=== PATIENT | male | born 1960 | race Caucasian/White ===

== ENCOUNTER → 2020-04-17 15:10 | Outpatient (BNVA) | payer MEDICARE, OTHER, SELFPAY | PROVIDERS: Referring Provider Nurse Practitioner Family; Visit Provider Podiatrist Foot & Ankle Surgery | DX: M79.671 Pain in right foot (principal); M79.672 Pain in left foot; M77.32 Calcaneal spur, left foot; M77.31 Calcaneal spur, right foot | CPT/HCPCS: 73630 ==

== ENCOUNTER 2024-12-01 08:55 | Outpatient (CLI) | payer BC, SELFPAY ==
--- NOTE | 2024-12-01 09:06 | XR_ITS ---
WS: [id number] XR chest 2V* [id number] REASON FOR EXAM: R05.9 - Cough, unspecified FINDINGS: Moderate tortuosity of the thoracic aorta. Normal heart size. Calcified granulomatous disease in both hemithoraces. No acute pulmonary parenchymal or pleural abnormality. Moderate degenerative spondylosis in the thoracic spine. XR/XR chest 2V* [id number] IMPRESSION: No acute chest abnormality.
== END 2024-12-01 08:56 | disposition home or self-care (01) ==
PROVIDERS: PCP Nurse Practitioner Family; Visit Provider Nurse Practitioner Family
DX: R05.9 Cough, unspecified (principal); R53.83 Other fatigue; I10 Essential (primary) hypertension; Q25.46 Tortuous aortic arch; D71 Functional disorders of polymorphonuclear neutrophils; M47.894 Other spondylosis, thoracic region
CPT/HCPCS: 71046; 80053; 85025

== ENCOUNTER → 2024-12-05 11:19 | Outpatient (BNVA) | payer BC, SELFPAY | PROVIDERS: PCP Nurse Practitioner Family; Visit Provider Nurse Practitioner Family | DX: R73.09 Other abnormal glucose (principal); J20.8 Acute bronchitis due to other specified organisms; B96.89 Other specified bacterial agents as the cause of diseases classified elsewhere | CPT/HCPCS: 83036 ==

== ENCOUNTER 2025-08-10 00:33 | Inpatient (IN) | payer BC, SELFPAY ==
--- OUTSIDE RECORDS SUMMARY | 2025-08-09 23:08 | XMS_ITS | Encounter Summary ---
Author Organization [facility] Address [address] [place] [address] Care Team Providers Care Soda Drier Feeder Name Role Phone Non-Staff, Physician Primary Care Provider Unava ilable Reason for Visit * Reason Comments Shortness of Breath Patient states he is having shortness of breath 3 days ago. Patient states he has been smoking a pipe without a filter and I feel like I have it on my lungs . Chest Pain Chest pain is been h aving it when he can't breath. Encounter Details Date Type Department Care Team (Late st Contact Info) Description 08/09/2025 11:08 PM CDT - 08/09/2025 11:55 PM CDT Emergency [facility] Emergency Medicine [address] [place] [id number] Royal Zamora MD [address] [facility] [address] [place] [id number] ST elevation myocardial infarction (STEMI), unspecified artery (CMS/HCC) (Primary Dx) Discharge Disposition: Acute Care Hospital Social History Tobacco Use Types Packs/Day Years Used Date Smoking Tobacco: Some Days Pipe Smokeless Tobacco: Current Last attempted to quit: 08/10/2016 Tobacco Cessation:Ready to Q uit: Not Asked; Counseling Given: Not Answered Comments:Quit smoking: one can per 3 days x 40 years Alcohol Use Standard Drinks/Week Comments No 0 (1 standard drink = 0.6 oz pur e alcohol) Feeling Safe Answer Date Recorded Are you in a relationship wi th someone who hurts you emotionally and/or physically? No 08/09/2025 Food Insecurity Answer Date Recorded Patient needs follow up regardin 06/12/2025 Transportation Needs Answer Date Record ed Patient needs follow up regardin 06/12/2025 Utility Needs Answer Date Recorded Patient needs follow up regardin 06/12/2025 Sex and Gender Information Value Date Recorded Sex Assigned at Not on file Legal Sex Male 3:51 PM [employer]PO[employer]AR [employer] Gender Identity Not on file Sexual Orientation Not on file documented as of this encounter Last Filed Vital Signs Vital Sign Reading Time Taken Comments Blood Pressure 112/76 08/09/2025 11:50 PM CDT Pulse 84 08/09/2025 11:50 PM CDT Temperature 37.1 C (98.7 F) 08/09/2025 11:18 PM CDT Respiratory Rate 14 08/09/2025 11:5 0 PM CDT Oxygen Saturation 93% 08/09/2025 11: 50 PM CDT Inhaled Oxygen Concentration - - Weight 110.9 kg (244 lb 9.6 oz) 025 11:18 PM CDT Height 190.5 cm (6' 3 ) 08/09/2025 11:1 8 PM CDT Body Mass Index 30.57 08/09/2025 11:18 PM CDT documented in this encounter Medications at Time of Discharge predniSONE (DELTASONE) 5 mg tablet Take 1 Tablet by mouth daily. 02/23/2022 carvediloL (COREG) 6.25 mg tablet Take 6.25 mg by mouth 2 times daily with meals. tacrolimus (PROGRAF) 1 mg capsule Take 1 mg by mouth 2 times daily. acetaminophen (TYLENOL) 500 mg tablet Take 1,000 mg by mouth. 02/19/2022 amitriptyline (ELAVIL) 10 mg tablet TAKE 4 TABLETS BY MOUTH NIGHTLY 04/23/2022 aspirin (ECOTRIN EC) 81 mg Tablet, Delayed Release (E.C.) Take 81 mg by mouth daily. 05/15/2020 Cholecalciferol, Vitamin D3, 50 mcg (2,000 unit) Capsule Take 2,000 Units by mouth daily. 05/15/2020 amLODIPine (NORVASC) 10 mg tablet Take 10 mg by mouth daily. 04/02/2015 oxyBUTYnin (DITROPAN) 5 mg tablet Take 5 mg by mouth. 02/19/2022 phenazopyridine 100 mg tablet Take 100 mg by mouth. 02/19/2022 oxyCODONE (ROXICODONE) 5 mg tabletIndications: Mass of mandible Take 1 Tablet (5 mg) by mouth every 4 hours as needed for Pain. Max Daily Amount: 30 mg 20 Tablet 06/21/2025 oxyCODONE (ROXICODONE) 5 mg tabletIndications: Mass of mandible,Tobacco use Take 1 Tablet (5 mg) by mouth every 4 hours as needed for Pain. Max Daily Amount: 30 mg 20 Tablet 06/15/2025 penicillin V potassium (VEETID) 500 mg tablet TAKE 1 TABLET BY MOUTH 4 TIMES DAILY UNTIL GONE 05/16/2025 gabapentin (NEURONTIN) 600 mg tablet Take 1 Tablet by mouth 3 times daily. 02/18/2023 hydrALAZINE (APRESOLINE) 50 mg tablet Take 1 Tablet by mouth 3 times daily. 02/18/2023 mycophenolate sodium (MYFORTIC) 360 mg Tablet, Delayed Release (E.C.) Take 1 Tablet by mouth daily. 02/18/2023 diphenhydrAMINE (BENADRYL) 25 mg tablet Take 25 mg by mouth every 6 hours as needed for Allergies. 11/20/2018 sucroferric oxyhydroxide 500 mg Tablet, Chewable Take 500 mg by mouth 3 times daily. 11/20/2018 torsemide (DEMADEX) 100 mg tablet Take 100 mg by mouth 2 times daily. 11/20/2018 atenoloL (TENORMIN) 50 mg tablet Take 50 mg by mouth daily. 11/20/2018 pramipexole (MIRAPEX) 1 mg TabletIndications: Restless legs,Pain in both lower extremities TAKE 1 TABLET BY MOUTH THREE TIMES DAILY 90 Tablet 0 10/11/2018 hydrOXYzine HCL (ATARAX) 25 mg tabletIndications: Impetigo TAKE 1 TABLET BY MOUTH THREE TIMES DAILY NEEDED FOR ITCHING 30 Tablet 0 05/02/2018 mupirocin (BACTROBAN) 2 % OintmentIndication s:Bilateral cellulitis of lower leg Apply to affected area 2 times daily. 60 Gram 2 12/22/2017 clobetasoL (TEMOVATE) 0.05 % OintmentIndication s:Rash and nonspecific skin eruption Apply to affected area 2 times daily. 45 Gram 2 04/15/2016 losartan (COZAAR) 100 mg tablet Take 100 mg by mouth 2 times daily . 04/02/2015 documented as of this encounter Progress Notes * Dillan Jenkins RCP - 08/09/2025 11:17 PM CDT EKG completed. Results given to Dr. ZAMORA and scanned into [employer]. documented in this encounter ED Notes * Salima Blackburn RN - 08/09/2025 11:50 PM CDT Report given to [facility]. Patient transferred to EMS stretcher without any difficulty. Medicationscontinued with EMS. Ivs patent. Family advised where to go at [facility]. * Salima Blackburn RN - 08/09/2025 11:43 PM CDT Patient family at bedside. * Salima Blackburn RN - 08/09/2025 11:25 PM CDT Johnny Keith is a 64 y.o. male who arrives to the Emergency Department by private car. Chief Complaint Patient presents with Shortness of Breath Patient states he is having shortness of breath 3 days ago. Patient states he has been smoking a pipe without a filter and I feel like I have it on my lungs . Chest Pain Chest pain is been having it when he can't breath. Pain is 0/10. VSS, aaox4, HARRISON, behavior appropriate to circumstance, no acute distress at this time. Airway patent, self-maintained with even, non-labored respirations. Perfusion within normal limitsfor age. Skin color normal for ethnicity, warm, dry and intact. Instructed patient to remove clothing per policy, ensured patient privacy, gown provided to patient. ID band present. Patient in bed in low position with wheels locked. Patient informed of plan of care. Patient verbalized understanding and in agreement with plan of care, all questions answered. Comfort measures offered. spouse at bedside at this time. Monitors on and audible. Patient placed on continuous rn cardiac rehab, pulse ox and blood pressure monitoring. Call light at bedside. Patient encouraged to call with needs. Will continue to monitor. Weapons assessment performed. Education provided regarding facility weapon storage and securement policy. Johnny Keith denied possession of any weapons or firearms at this time documented in this encounter Miscellaneous Notes * Treatment Plan - Libra Renteria, PHARMACIST - 08/10/2025 12:14 AM CDT [facility] ([facility] Adult Heparin PTT Monitoring Protocol [facility] ORDERS ARE ENTERED ???PER PROTOCOL?? Nursing Orders: Heparin must be hung as primary IV on dedicated IV site, unless discussed with physician and exception is authorized Obtain an actual weight, not stated weight, for pharmacy verification Do not give IM injections unless credentialed prescriber is alerted and chooses to proceed. Exception: Patient may receive vaccinations without contacting provider. RN to hold pressure to site post administration for 2 minutes Call credentialed prescriber for any evidence of hematoma, decrease in hemoglobin of 2 gram/dL or more, or with any acute change in mental status When programming the smart pump, refer to weight in eMAR order (this may not correlate with patient's current weight) Verify weight in eMAR order matches weight in smartpump Enter actual volume infused into flowsheet directly from smart pump upon clearing the pump volume Laboratory Orders: Baseline: PTT and CBC without differential if not obtained in the last 72 hours before starting IV Heparin Infusion monitoring: Timed PTT every 6 hours after the initiation of infusion, change in rate or bolus until 2 consecutive PTT are in therapeutic range PTT monitoring should be used instead of Anti-xa monitoring for the following: Facility only has PTT lab monitoring capabilities Patients who have received a Xa inhibitor Direct Oral Anticoagulant (DOAC) medication (rivaroxaban,apixaban, edoxaban), therapeutic Enoxaparin, or Fondaparinux within the last 48 hours Daily once stable: PTT daily while on heparin once stable Minimum every 3 days: CBC without differential drawn at minimum of every 3 days while on heparin Medication Orders: Discontinue ALL other orders for subcutaneous, oral or IV anticoagulants, for example but not limited to: enoxaparin (LOVENOX), or fondaparinux (ARIXTRA) or oral anticoagulants dabigatran (PRADAXA), apixaban (ELIQUIS), edoxaban (SAVAYSA) or rivaroxaban (XARELTO). This protocol is not recommended for use with continuous alteplase infusions. Contact provider for additional orders. Pharmacist to confirm indication to ensure correct protocol table is followed, if unclear from the physician order or via chart review Pharmacist to verify heparin rate changes based on lab results in the protocol tables below. Pharmacist may update the order and MAR to match the current infusion rate. Dosing Weight: Obtain using a scale, NOT stated weight order-specific heparin dosing weight to be calculated by pharmacist. If weight <= 100 kg, ACTUAL body weight will be used to perform dose calculations If weight exceeds 100 kg, an ADJUSTED body weight will be used to perform dose calculations Initial dosing weight to be used for heparin infusion for the duration of therapy. Caution should be used by the RN to observe that this is the weight programmed in the smart pump. DVT/PE Heparin Infusion (usual indication for VTE: PE/DVT) Per provider order - bolus or no bolus Adjusted body weight used for pts >100 kg Initial Bolus Dose 80 units/kg (MAX 10,000 units) Initial Infusion 18 units/kg/hour PTT Bolus (if boluses are authorized by physician per infusion order) Hold Infusion IV infusion Change Next Level Less than 52.5 60 units/kg 0 min Increase heparin dose by 3 units/kg/hr 6 hours 52.5-62.7 30 units/kg 0 min Increase heparin dose by 2 units/kg/hr 6 hours 62.8-103.7 NO CHANGE Every 6 hours x 2 then every AM 103.8.113.9 none 0 min Decrease heparin dose by 1 units/kg/hr 6 hours 114.0-124.1 none 30 min Decrease heparin dose by 2 units/kg/hr 6 hours Greater than 124.1 none 60 min Decrease heparin dose by 3 units/kg/hr 6 hours Cardiac Heparin Infusion (usual indication: Atrial fibrillation, mechanical valves, ACS, high bleedrisk) Per provider order - bolus or no bolus Adjusted body weight used for pts >100 kg Initial Bolus Dose Atrial fibrillation, mechanical valves, high bleed risk: 60 units/kg (MAX 7500 units) ACS: 60 units/kg (MAX 4000 units) Initial Infusion Atrial fibrillation, mechanical valves, high bleed risk: 15 units/kg/hour ACS: 12 units/kg/hour (MAX 1000 units/hour) PTT Bolus (if boluses are authorized by physician per infusion order) Hold Infusion IV infusion Change Next Level Less than 52.5 30 units/kg 0 min Increase heparin dose by 2 units/kg/hr 6 hours 52.5-62.7 15 units/kg 0 min Increase heparin dose by 1 units/kg/hr 6 hours 62.8-93.4 NO CHANGE Every 6 hours x 2 then every AM 93.5-103.7 none 0 min Decrease heparin dose by 1 units/kg/hr 6 hours 103.8-124.1 none 30 min Decrease heparin dose by 2 units/kg/hr 6 hours Greater than 124.1 none 60 min Decrease heparin dose by 3 units/kg/hr 6 hours documented in this encounter Plan of Treatment Scheduled Orders Name Type Priority Associated Diagnoses Orde r Schedule TROPONIN 6 HR, 5TH GEN Lab Timed Study O NE TIME for 1 Occurrences starting 08/10/2025 until 08/10/2025 TROPONIN 2 HR, 5TH GEN Lab Timed Study O NE TIME for 1 Occurrences starting 08/10/2025 until 08/10/2025 CBC WITHOUT DIFFERENTIAL Lab Routine EVERY SEVENTY-TWO HOURS until discontinued starting 08/09/2025 PTT Lab Routine ONE TIME COLLE CT NOW for 1 Occurrences starting 08/09/2025 until 08/09/2025 documented as of this encounter Procedures Procedure Name Priority Date/Time Associated Diagnosis Comments XR CHEST PA OR AP 1 VW Stat 11:26 PM CDT TROPONIN BASELINE, 5TH GEN Stat 08/09/2025 11:13 PM CDT CBC WITH DIFFERENTIAL Stat 08/09/2025 11:13 PM CDT BRAIN NATRIURETIC PEPTIDE, BNP OR PROBNP Stat 08/09/2025 11:13 PM CDT COMPREHENSIVE METABOLIC PANEL Stat 08/09/2025 11:13 PM CDT documented in this encounter Results * XR CHEST PA OR AP 1 VW (08/09/2025 11:26 PM CDT) Anatomical Region Laterality Modality Chest Computed Radiogr aphy 08/09/2025 11:2 6 PM CDT Impressions 08/10/2025 12:26 AM CDT IMPRESSION: No evidence of acute cardiopulmonary disease. Narrative 08/10/2025 12:26 AM CDT EXAM: XR CHEST PA OR AP 1 VW DATE/TIME OF EXAM: 08/09/2025 11:26 PM REASON FOR EXAM: Shortness of Breath SOB DIAGNOSIS: See Reason for Exam COMPARISON: Chest x-ray 06/11/2025 FINDINGS: - Lines/tubes: None. - Cardiomediastinal: Contours are within normal limits. - Lungs/pleura: Sonograms of the multiple tiny calcified granuloma. No focal consolidation. Hemidiaphragms are well visualized; no appreciable pleural effusion or pneumothorax. - Bones and soft tissues: No acute abnormalities. - Additional comments: None. Procedure Note Radha Welsh MD - 08/10/2025 EXAM: XR CHEST PA OR AP 1 VW DATE/TIME OF EXAM: 08/09/2025 11:26 PM REASON FOR EXAM: Shortness of Breath SOB DIAGNOSIS: See Reason for Exam COMPARISON: Chest x-ray 06/11/2025 FINDINGS: - Lines/tubes: None. - Cardiomediastinal: Contours are within normal limits. - Lungs/pleura: Sonograms of the multiple tiny calcified granuloma. No focal consolidation. Hemidiaphragms are well visualized; no appreciable pleural effusion or pneumothorax. - Bones and soft tissues: No acute abnormalities. - Additional comments: None. IMPRESSION: No evidence of acute cardiopulmonary disease. Royal Zamora MD DIAGNOSTIC IMAGING OR DERABLES Final Result * (ABNORMAL) TROPONIN BASELINE, 5TH GEN (08/09/2025 11:13 PM CDT) TROPONIN T, BASELINE 5TH GEN 38(H) <=15 ng/L 08/09/2025 11:50 PM CDT [facility] Blood BLOOD SPECIMEN / Unknown Venipuncture / Unknown 08/09/2025 11:13 PM CDT 08/09/2025 11:28 PM CDT Narrative [facility] - 08/09/2025 11:50 PM CDT Troponin elevated. Royal Zamora MD CHEMISTRY ORDERABLES Final Result Performing Organization Address City/[facility]/ZIP Co de Phone Number [facility] CLIA # [id number] [address] [place] [phone] * (ABNORMAL) BRAIN NATRIURETIC PEPTIDE, BNP OR PROBNP (08/09/2025 11:13 PM CDT) PROBNP, N TERMINAL 580(H) 0 - 125 pg/mL 08/09/2025 11:50 PM CDT [facility] Comment: INTERPRETIVE COMMENT based on diagnosis: Diagnostic NT pro-BNP cutoffs for Heart Failure in the absence of renal failure is suggested for the following ranges <75 years: <125 pg/mL >=75 years: <450 pg/mL Exclusionary rule out cut-point for Acute Decompensated Heart Failure(ADHF) All ages: <300 pg/mL Diagnostic NT pro-BNP cutoffs for Acute Decompensated Heart Failure(ADHF) in the absence of renal failure is suggested for the following ages <50 years: > 450 pg/mL 50-75 years: > 900 pg/mL >75 years: >1800 pg/mL Blood BLOOD SPECIMEN / Unknown Venipuncture / Unknown 08/09/2025 11:13 PM CDT 08/09/2025 11:28 PM CDT Royal Zamora MD CHEMISTRY ORDERABLES Final Result Performing Organization Address City/[facility]/ZIP Co de Phone Number [facility] CLIA # [id number] [address] [place] [phone] * (ABNORMAL) COMPREHENSIVE METABOLIC PANEL (08/09/2025 11:13 PM CDT) SODIUM 134(L) 136 - 145 mmol/L 08/09/2025 11:52 PM CDT [facility] POTASSIUM 3.4(L) 3.5 - 5.1 mmol/L 08/09/2025 11:52 PM [facility] CHLORIDE 98 98 - 107 mmol/L 08/09/2025 11:52 PM [facility] CO2 19(L) 22 - 29 mmol/L 08/09/2025 11:52 PM [facility] CALCIUM 7.1(L) 8.8 - 10.2 mg/dL 08/09/2025 11:52 PM [facility] BUN 17 8 - 23 mg/dL 08/09/2025 11:52 PM [facility] CREATININE 0.98 0.67 - 1.17 mg/dL 08/09/2025 11:52 PM [facility] GLUCOSE 405(HH) 74 - 99 mg/dL 08/09/2025 11:52 PM [facility] TOTAL PROTEIN 7.0 6.6 - 8.7 g/dL 08/09/2025 11:52 PM [facility] ALBUMIN 3.8 3.5 - 5.2 g/dL 08/09/2025 11:52 PM [facility] BILIRUBIN TOTAL 0.2 0.0 - 1.2 mg/dL 08/09/2025 11:52 PM [facility] ALKALINE PHOSPHATASE 121 40 - 129 U/L 08/09/2025 11:52 PM [facility] AST 17 0 - 50 U/L 08/09/2025 11:52 PM [facility] ALT 14 0 - 50 U/L 08/09/2025 11:52 PM [facility] GFR >60 >=60 mL/min/1.7 3 sq meter 08/09/2025 11:52 PM [facility] Comment:eGFR calculated with 2020 CKD-EPI equation. Vegetarian diet, extremely high or low muscle mass, and may affect results. Cystatin C with Glomerular Filtration Rate is a suitable alternative for these patients. ANION GAP 17 5 - 20 mmol/L 08/09/2025 11:52 PM [facility] Blood BLOOD SPECIMEN / Unknown Venipuncture / Unknown 08/09/2025 11:13 PM CDT 08/09/2025 11:28 PM CDT us Royal Zamora MD CHEMISTRY ORDERABLES Final Result [facility] CLIA # [id number] [address] [place] [phone] * (ABNORMAL) CBC WITH DIFFERENTIAL (08/09/2025 11:13 PM CDT) WBC 10.2(H) 4.2 - 9.1 K/uL 08/09/2025 11:34 PM T [facility] RBC 4.83 4.63 - 6.08 M/uL 08/09/2025 11:34 PM [facility] HEMOGLOBIN 15.2 13.7 - 17.5 g/dL 08/09/2025 11:34 PM [facility] HEMATOCRIT 42.7 40.1 - 51.0 % 08/09/2025 11:34 PM [facility] MCV 88.4 79.0 - 92.2 fL 08/09/2025 11:34 PM [facility] MCH 31.5 25.7 - 32.2 pg 08/09/2025 11:34 PM [facility] MCHC 35.6 32.3 - 36.5 g/dL 08/09/2025 11:34 PM [facility] RDW 12.6 11.0 - 14.5 % 08/09/2025 11:34 PM [facility] RDW-STDEV 40.8 36.9 - 56.9 fL 08/09/2025 11:34 PM [facility] PLATELETS 279 130 - 400 K/uL 08/09/2025 11:34 PM [facility] MPV 9.8(L) 10.0 - 14.8 fL 08/09/2025 11:34 PM [facility] NEUTROPHILS 70(H) 34 - 68 % 08/09/2025 11:34 PM T [facility] LYMPHOCYTES 15(L) 22 - 53 % 08/09/2025 11:34 PM [facility] MONOCYTES 10 5 - 12 % 08/09/2025 11:34 PM [facility] EOSINOPHILS 3 1 - 7 % 08/09/2025 11:34 PM [facility] BASOPHILS 1 0 - 1 % 08/09/2025 11:34 PM [facility] IMMATURE GRANULOCYTES 1 % 08/09/2025 11:34 PM [facility] NEUTROPHIL ABSOLUTE 7.08(H) 1.78 - 5.38 K/uL 08/09/2025 11:34 PM [facility] LYMPHOCYTE ABSOLUTE 1.55 1.20 - 3.40 K/uL 08/09/2025 11:34 PM [facility] MONOCYTE ABSOLUTE 1.04(H) 0.30 - 0.82 K/uL 08/09/2025 11:34 PM [facility] EOSINOPHIL ABSOLUTE 0.34 0.04 - 0.54 K/uL 08/09/2025 11:34 PM [facility] BASOPHILS ABSOLUTE 0.07 0.01 - 0.08 K/uL 08/09/2025 11:34 PM [facility] IMMATURE GRANULOCYTES ABSOLUTE 0.08 K/uL 08/09/2025 11:34 PM [facility] Blood BLOOD SPECIMEN / Unknown Venipuncture / Unknown 08/09/2025 11:13 PM CDT 08/09/2025 11:28 PM CDT us Royal Zamora MD HEMATOLOGY ORDERABLES Final Result [id number] [address] [place] [address] [phone] documented in this encounter Visit Diagnoses Diagnosis ST elevation myocardial infarction (STEMI), unspecified artery (CMS/HCC)- Primary documented in this encounter Administered Medications Active Administered Medications - up to 3 most recent administrations Medication Order MAR Action Action Date Dose Rate Site amiodarone in dextrose (ISO-OSM) (NEXTERONE) 360 mg/200 mL (1.8 mg/mL) IV infusion 0.5 mg/min (16.6667 mL/hr, rounded to 16.67 mL/hr), IV, CONTINUOUS, Starting on Wed08/10/25 at 0600, Until Discontinued heparin in 0.45% NaCl 25,000 unit/250 mL infusion 10.5 Units/kg/hr 95.1 kg Adjusted weight (9.9855 mL/hr, rounded to 10 mL/hr), IV, TITRATE, Starting on Wed08/09/25 at 2345, Until Discontinued, Indication: ACS/STEMI, Dosing by: PER PROTOCOL: Delegate to facility protocol per indication, Re-bolus within Protocol? Yes, allow re-bolus New Bag 08/09/2025 11:45 PM CDT 10.5 Units/kg/hr 10 mL/hr morphine 4 mg/mL injection 4 mg 4 mg, IV, EVERY 2 HOURS PRN, Starting on Wed08/09/25 at 2326, Until Discontinued, Pain (See admin instructions), Routine Given 08/09/2025 11:32 PM CDT 4 mg nitroglycerin (NITROSTAT) tablet 0.4 mg 0.4 mg, Sublingual, EVERY 5 MINUTES PRN, Starting on Wed08/09/25 at 2326, Until Discontinued, Chest Pain, Routine Given 08/09/2025 11:31 PM CDT 0.4 mg Inactive Administered Medications - up to 3 most recent administrations Medication Order MAR Action Action Date Dose Rate Site amiodarone in dextrose (ISO-OSM) (NEXTERONE) 150 mg/100 mL (1.5 mg/mL) IVPB 150 mg 150 mg, IV, ONE TIME ONLY, 1 dose, On Tami 08/09/25 at 2345, Routine New Bag 08/09/2025 11:52 PM CDT 150 mg 600 mL/hr aspirin (JAYLAN CHEWABLE) chewable tablet 243 mg 243 mg, Oral, ONE TIME ONLY, 1 dose, On Tami 08/09/25 at 2330, Routine Given 08/09/2025 11:27 PM CDT 243 mg clopidogreL (PLAVIX) tablet 600 mg 600 mg, Oral, ONE TIME ONLY, 1 dose, On Tami 08/09/25 at 2345, Routine Given 08/09/2025 11:48 PM CDT 600 mg heparin injection 5,000 Units 5,000 Units, IV, ONE TIME ONLY, 1 dose, On Tami 08/09/25 at 2330, Routine Given 08/09/2025 11:28 PM CDT 5,000 Units documented in this encounter Active and Recently Administered Medications Times are shown in CDT. Scheduled Medication Order 08/07/2025 08/08/2025 08/09/2025 amiodarone in dextrose (ISO-OSM) (NEXTERONE) 150 mg/100 mL (1.5 mg/mL) IVPB 150 mg (COMPLETED) 150 mg, IV, ONE TIME ONLY, 1 dose, On Tami 08/09/25 at 2345, Routine 235 (New Bag - Prov ider: Elisa Ewing RN) aspirin (JAYLAN CHEWABLE) chewable tablet 243 mg (COMPLETED) 243 mg, Oral, ONE TIME ONLY, 1 dose, On Tami 08/09/25 at 2330, Routine 232 (Given - Provid er: Salima Blackburn RN) clopidogreL (PLAVIX) tablet 600 mg (COMPLETED) 600 mg, Oral, ONE TIME ONLY, 1 dose, On Tami 08/09/25 at 2345, Routine 234 (Given - Provid er: Elisa Ewing RN) heparin injection 5,000 Units (COMPLETED) 5,000 Units, IV, ONE TIME ONLY, 1 dose, On Tami 08/09/25 at 2330, Routine 2328 (Given - Provid er: Salima Blackburn RN) Continuous Medication Order 08/07/2025 08/08/2025 08/09/2025 amiodarone in dextrose (ISO-OSM) (NEXTERONE) 360 mg/200 mL (1.8 mg/mL) IV infusion 0.5 mg/min (16.6667 mL/hr, rounded to 16.67 mL/hr), IV, CONTINUOUS, Starting on Wed08/10/25 at 0600, Until Discontinued heparin in 0.45% NaCl 25,000 unit/250 mL infusion 10.5 Units/kg/hr 95.1 kg Adjusted weight (9.9855 mL/hr, rounded to 10 mL/hr), IV, TITRATE, Starting on Wed08/09/25 at 2345, Until Discontinued, Indication: ACS/STEMI, Dosing by: PER PROTOCOL: Delegate to facility protocol per indication, Re-bolus within Protocol? Yes, allow re-bolus 2344 (New Bag - Prov ider: Salima Blackburn RN - Comment: Unable to complete viascanning due to pharmacist locking chart.)235 (Stopped - Provider: Salima Blackburn RN - Comment: continued with EMS) PRN Medication Order 08/07/2025 08/08/2025 08/09/2025 morphine 4 mg/mL injection 4 mg 4 mg, IV, EVERY 2 HOURS PRN, Starting on Tami 08/09/25 at 2326, Until Discontinued, Pain (See admin instructions), Routine 2332 (Given - Provid er: Salima Blackburn RN) nitroglycerin (NITROSTAT) tablet 0.4 mg 0.4 mg, Sublingual, EVERY 5 MINUTES PRN, Starting on Tami 08/09/25 at 2326, Until Discontinued, Chest Pain, Routine 2331 (Given - Provid er: Salima Blackburn RN) documented in this encounter Care Teams Soda Drier Feeder Relationship Specialty Start Date End Date Non-Staff, Physician NO ADDRESS ON FILE PCP - General 01/16/20 documented as of this encounter
[2025-08-10] VITALS (17 sets, daily range): BP systolic 100–136; BP diastolic 65–87; PULSE 50–74; RESP 12–24; TEMP 36.5–36.7; O2SAT 90–99; BMI 30.8
--- OUTSIDE RECORDS SUMMARY | 2025-08-10 00:39 | XMS_ITS | Encounter Summary ---
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
--- OUTSIDE RECORDS SUMMARY | 2025-08-10 00:39 | XMS_ITS | Encounter Summary ---
Author Organization [facility] Address [address] [place] [address] Care Team Providers Care Fire Protection Specialist Name Role Phone Non-Staff, Physician Primary Care Provider Unava ilable Encounter Details Date Type Department Care Team (Late st Contact Info) Description 04/19/2012 Ancillary Orders [facility] Laboratory Services [place] [address] [place] [phone] Nilson Keller, DO NO ADDRESS ON FILE Social History Tobacco Use Types Packs/Day Years Used Date Smoking Tobacco: Some Days Cigarettes Pipe Smokeless Tobacco: Never Chew Alcohol Use Standard Drinks/Week Comments No 0 (1 standard drink = 0.6 oz pur e alcohol) occasional Sex and Gender Information Value Date Recorded Sex Assigned at Not on file 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
--- OUTSIDE RECORDS SUMMARY | 2025-08-10 00:39 | XMS_ITS | Encounter Summary ---
Author Organization [facility] Address [address] 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
--- OUTSIDE RECORDS SUMMARY | 2025-08-10 00:39 | XMS_ITS | Encounter Summary ---
Author Organization [facility] Address [address] [place] [address] Care Team Providers Care Manager Intensive Care Unit Name Role Phone Non-Staff, Physician Primary Care Provider Unava ilable Reason for Referral * Radiology Services (Routine) - Closed Specialty Diagnoses / Procedures Referred By Eleazar phipps Referred To Contact Radiology Diagnoses Elevated serum creatinine Hypertension, unspecified type Procedures US RENAL TRANSPLANT Cesar Shearer MD [facility] [address] [place] [address] Phone: tel: fax: Referral ID Status Reason Start Date Expiration Date V isits Requested Visits Authorized [id number] Closed [facility] CTS to Schedule (SGF) 07/05/2019 08/04/2020 1 1 Encounter Details Date Type Department Care Team ([facility] st Contact Info) Description 07/05/2019 Ancillary Orders [facility] Centralized Scheduling [address] [place] [address] Kaitlyn, External Provider [address] [place] [address] Elevated serum creatinine; Hypertension, unspecified type Social History Tobacco Use Types Packs/Day Years Used Date Smoking Tobacco: Former Cigarettes Pipe Smokeless Tobacco: Current Chew Last attempted to quit: 08/10/2016 Comments:one can per 3 days x 40 years Alcohol Use Standard Drinks/Week Comments No 0 (1 standard drink = 0.6 oz pur e alcohol) Sex and Gender Information Value Date Recorded Sex Assigned at Not on file 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 Exam: US RENAL TRANSPLANT Date/Time of Exam: 07/06/2019 11:52 AM Reason For Exam: See Diagnosis Diagnosis: Elevated serum creatinine; Hypertension, unspecified type Findings: No comparison. There is a right lower quadrant transplant kidney measuring 13.1 x 7.0 x 5.7 cm. There is moderate hydronephrosis of the transplant with the renal pelvis measuring 2.4 cm. No visualized nephrolithiasis or concerning renal lesion. There is no perinephric fluid collection. The renal cortex appears normal in thickness. The renal artery and vein appear patent though this is not a formal Doppler evaluation. Severe atrophy and increased echogenicity of the mcgrath right kidney measuring 10.6 cm without hydronephrosis or concerning renal lesion. There is a small amount of right perinephric fluid There is atrophy of the mcgrath left renal kidney measuring 9.8 cm. No hydronephrosis. There is a small amount of perinephric fluid. Urinary bladder is minimally distended and otherwise unremarkable. IMPRESSION: 1. 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 There is mild perinephric fluid bilaterally which is likely reactive secondary to renal failure. No hydronephrosis of the mcgrath kidneys. 2. Right lower quadrant transplant graft appears mildly enlarged with moderate hydronephrosis. No cortical thinning or perinephric fluid collection. The renal artery and vein appear grossly patent, however, this is not a formal Doppler evaluation. Narrative Procedure Note Sam Yepez MD - 07/06/2019 IMPRESSION: Please see below. Exam: US RENAL TRANSPLANT Date/Time of Exam: 07/06/2019 11:52 AM Reason For Exam: See Diagnosis Diagnosis: Elevated serum creatinine; Hypertension, unspecified type Findings: No comparison. There is a right lower quadrant transplant kidney measuring 13.1 x 7.0 x 5.7 cm. There is moderate hydronephrosis of the transplant with the renal pelvis measuring 2.4 cm. No visualized nephrolithiasis or concerning renal lesion. There is no perinephric fluid collection. The renal cortex appears normal in thickness. The renal artery and vein appear patent though this is not a formal Doppler evaluation. Severe atrophy and increased echogenicity of the mcgrath right kidney measuring 10.6 cm without hydronephrosis or concerning renal lesion. There is a small amount of right perinephric fluid There is atrophy of the mcgrath left renal kidney measuring 9.8 cm. No hydronephrosis. There is a small amount of perinephric fluid. Urinary bladder is minimally distended and otherwise unremarkable. IMPRESSION: 1. 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 There is mild perinephric fluid bilaterally which is likely reactive secondary to renal failure. No hydronephrosis of the mcgrath kidneys. 2. Right lower quadrant transplant graft appears mildly enlarged with moderate hydronephrosis. No cortical thinning or perinephric fluid collection. The renal artery and vein appear grossly patent, however, this is not a formal Doppler evaluation. us External Provider Mtnv US ORDERABLES Final Res ult documented in this encounter Visit Diagnoses Diagnosis Elevated serum creatinine Other nonspecific findings on examination of blood Hypertension, unspecified type Elevated serum creatinine Other nonspecific findings on examination of blood Hypertension, unspecified type documented in this encounter Care Teams Manager Intensive Care Unit Relationship Specialty Start Date End Date Non-Staff, Physician NO ADDRESS ON FILE PCP - General 01/16/20 documented as of this encounter
--- OUTSIDE RECORDS SUMMARY | 2025-08-10 00:39 | XMS_ITS | Encounter Summary ---
Author Organization [facility] Address [address] [place] [address] Care Team Providers Care Mri Technologist Name Role Phone Non-Staff, Physician Primary Care Provider Unava ilable Encounter Details Date Type Department Care Team (Latest Contact Info) Description 02/09/2006 Outpatient Historical [facility] Cardiology Ancillary Services-[place] [address] [place] [id number] Murali Valdez MD NO ADDRESS ON FILE Precordial Pain (Primary Dx) Social History Tobacco Use Types Packs/Day Years Used Date Smoking Tobacco: Never Assessed Sex and Gender Information Value Date Recorded Sex Assigned at Not on file 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
--- OUTSIDE RECORDS SUMMARY | 2025-08-10 00:39 | XMS_ITS | Clinical Summary ---
Author Organization [facility] Address [address] [place] [place] [address] Care Team Providers Care Top Lift Compressor Name Role Phone Non-Staff, Physician Primary Care Provider Unava ilable Allergies Active Allergy Reactions Criticality Noted Date Comments Atorvastatin Muscle Pain Medium 03/12/2019 Leg cramping Medications diphenhydrAMINE (BENADRYL) 25 mg tablet Take 25 mg by mouth every 6 hours as needed for Allergies. 9 Active pramipexole (MIRAPEX) 1 mg TabletIndications :Restless legs,Pain in both lower extremities TAKE 1 TABLET BY MOUTH THREE TIMES DAILY 90 Tablet 0 8 Active sucroferric oxyhydroxide 500 mg Tablet, Chewable Take 500 mg by mouth 3 times daily. 9 Active torsemide (DEMADEX) 100 mg tablet Take 100 mg by mouth 2 times daily. 9 Active atenoloL (TENORMIN) 50 mg tablet Take 50 mg by mouth daily. 9 Active hydrOXYzine HCL (ATARAX) 25 mg tabletIndications :Impetigo TAKE 1 TABLET BY MOUTH THREE TIMES DAILY NEEDED FOR ITCHING 30 Tablet 0 8 Active mupirocin (BACTROBAN) 2 % OintmentIndicatio ns:Bilateral cellulitis of lower leg Apply to affected area 2 times daily. 60 Gram 2 8 Active clobetasoL (TEMOVATE) 0.05 % OintmentIndicatio ns:Rash and nonspecific skin eruption Apply to affected area 2 times daily. 45 Gram 2 6 Active losartan (COZAAR) 100 mg tablet Take 100 mg by mouth 2 times daily . 5 Active amLODIPine (NORVASC) 10 mg tablet Take 10 mg by mouth daily. 5 Active acetaminophen (TYLENOL) 500 mg tablet Take 1,000 mg by mouth. 2 Active amitriptyline (ELAVIL) 10 mg tablet TAKE 4 TABLETS BY MOUTH NIGHTLY 2 Active aspirin (ECOTRIN EC) 81 mg Tablet, Delayed Release (E.C.) Take 81 mg by mouth daily. 0 Active Cholecalciferol, Vitamin D3, 50 mcg (2,000 unit) Capsule Take 2,000 Units by mouth daily. 0 Active gabapentin (NEURONTIN) 600 mg tablet Take 1 Tablet by mouth 3 times daily. 3 Active hydrALAZINE (APRESOLINE) 50 mg tablet Take 1 Tablet by mouth 3 times daily. 3 Active mycophenolate sodium (MYFORTIC) 360 mg Tablet, Delayed Release (E.C.) Take 1 Tablet by mouth daily. 3 Active predniSONE (DELTASONE) 5 mg tablet Take 1 Tablet by mouth daily. 2 Active penicillin V potassium (VEETID) 500 mg tablet TAKE 1 TABLET BY MOUTH 4 TIMES DAILY UNTIL GONE 5 Active carvediloL (COREG) 6.25 mg tablet Take 6.25 mg by mouth 2 times daily with meals. Active tacrolimus (PROGRAF) 1 mg capsule Take 1 mg by mouth 2 times daily. Active oxyCODONE (ROXICODONE) 5 mg tabletIndications :Mass of mandible,Tobacco use Take 1 Tablet (5 mg) by mouth every 4 hours as needed for Pain. Max Daily Amount: 30 mg 20 Tablet 5 Active oxyCODONE (ROXICODONE) 5 mg tabletIndications :Mass of mandible Take 1 Tablet (5 mg) by mouth every 4 hours as needed for Pain. Max Daily Amount: 30 mg 20 Tablet 5 Active oxyBUTYnin (DITROPAN) 5 mg tablet Take 5 mg by mouth. 2 Active phenazopyridine 100 mg tablet Take 100 mg by mouth. 2 Active Active Problems Problem Noted Date Diagnosed Date Tobacco use 04/15/2016 Restless legs 06/28/2015 HTN (hypertension), benign 09/10/2008 Gouty arthropathy 09/07/2008 Overview (03/12/2021): Updating IMO/ICD9 Code and Description Chronic kidney disease (CKD), stage III (moderat e) 09/07/2008 Encounters Date Type Department Care Team Description 08/09/2025 11:08 PM CDT - 08/09/2025 11:55 PM CDT Emergency [facility] Emergency Medicine [address] [facility] [address] [place] [address] elevation myocardial infarction (STEMI), unspecified artery (CMS/HCC) (Primary Dx) Discharge Disposition: Acute Care Hospital 08/09/2025 Travel 07/31/2025 External Device Data STL ABSTRACTION Provider, Abstract 07/31/2025 External Device Data STL ABSTRACTION Provider, Abstract 07/24/2025 External Device Data STL ABSTRACTION Provider, Abstract 07/06/2025 11:30 AM CDT Office Visit [facility] [address] [place] [phone] She Burnette FNP Postoperative follow-up (Primary Dx) 07/06/2025 8:29 AM CDT - 07/06/2025 11:59 PM CDT Hospital Encounter [facility] Outpatient Laboratory Services [place] [address] [facility] [address] [place] [phone] Nina Shafer MD Du, Kefu, MD Discharge Disposition: Home or Self Care 07/04/2025 External Device Data STL ABSTRACTION Provider, Abstract 06/21/2025 Telephone [facility] [address] [place] [phone] Julian Wang MD Wants Appointment 06/21/2025 Orders Only [facility] [address] [place] [address] Julian Wang MD Mass of mandible (Primary Dx) 06/21/2025 Telephone [facility] [address] [place] [phone] Julian Wang MD Return Phone Call 06/15/2025 7:20 AM CDT - 06/15/2025 9:16 AM CDT Surgery [facility] Operating Room [address] [facility] [phone] Julian Wang MD MANDIBULECTOMY--CHINO INAL 06/15/2025 7:13 AM CDT Anesthesia Event [facility] Operating Room [address] [facility] [phone] Arnoldo Hernandez MD Ruise, Kelly, CRNA 06/15/2025 5:51 AM CDT - 06/15/2025 12:31 PM CDT Hospital Encounter [facility] 3J Pre-Op [address] [place] [phone] Julian Wang MD Mass of mandible Discharge Disposition: Home or Self Care 06/11/2025 7:23 AM CDT - 06/11/2025 11:59 PM CDT Hospital Encounter [facility] Respiratory Therapy [address] [phone] Julian Wang MD Discharge Disposition: Home or Self Care 06/11/2025 7:22 AM CDT - 06/11/2025 11:59 PM CDT Hospital Encounter [facility] maging [address] [phone] Julian Wang MD Discharge Disposition: Home or Self Care 05/31/2025 External Device Data STL ABSTRACTION Provider, Abstract 05/30/2025 External Device Data STL ABSTRACTION Provider, Abstract 05/30/2025 External Device Data STL ABSTRACTION Provider, Abstract 05/28/2025 9:45 AM CDT - 05/28/2025 11:59 PM CDT Hospital Encounter [facility] Outpatient Laboratory [facility] [address] [facility] [address] [place] [phone] Sudeep Ruiz MD Discharge Disposition: Home or Self Care 05/28/2025 7:25 AM CDT - 05/28/2025 11:59 PM CDT Hospital Encounter [facility] Outpatient Laboratory Services [place] [address] [place] [phone] Julian Wang MD Discharge Disposition: Home or Self Care from Last 3 Months Immunizations Immunization Administration Dates Next Due (TDVAX)(7 YRS UP) TETANUS AN D DIPHTHERIA TOXOIDS, ADSORBED (2 LF OF TETANUS TOXOID AND 2 LF OF DIPHTHERIA TOXOID), 0.5ML (PF), IM 03/13/1999 Family History Medical History Relation Name Comments Heart Disease Father age 58 Unknown Maternal Grandfather Unknown Maternal Grandmother Healthy Mother Unknown Paternal Grandfather Unknown Paternal Grandmother Breast Cancer Neg Hx Colon Cancer Neg Hx Relation Name Status Comments Father Maternal Grandfather Maternal Grandmother Mother Paternal Grandfather Paternal Grandmother Social History Tobacco Use Types Packs/Day Years [...] on file 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 Gender Identity Not on file Sexual Orientation Not on file Last Filed Vital Signs Vital Sign Reading [...] Mass Index 30.57 08/09/2025 11:18 PM CDT Plan of Treatment Health Maintenance Due Date Last Done Comments Pre-Diabetes and Diabetes Screening 1960 ZOSTER VACCINE (1 of 2) 1981 DTAP/TDAP/TD VACCINES (1 - Tdap) 03/14/1999 03/13/19 99 FIT-DNA Q 3 years 2007 FIT/FOBT Q 1 year 2007 Flex Sig/CT Colonography Q 5 years 2007 COLORECTAL SCREENING 07/09/2020 07/09/2015 Colorectal Cancer Screening 07/09/2020 RSV VACCINE (60+ or ) (1 - Risk 60-74 years 1-dose series) 2022 INFLUENZA VACCINE (#1) 2025 Abdominal Aortic Aneurysm (AAA) Screening Completed 05/27/2015, 12/26/2012 Procedures Procedure Name Priority Date/Time Associated Diagnosis Comments XR CHEST PA OR AP 1 VW Stat 08/09/2025 11:26 PM CDT TROPONIN BASELINE, 5TH GEN Stat 08/09/2025 11:13 PM CDT BRAIN NATRIURETIC PEPTIDE, BNP OR PROBNP Stat 08/09/2025 11:13 PM CDT COMPREHENSIVE METABOLIC PANEL Stat 08/09/2025 11:13 PM CDT CBC WITH DIFFERENTIAL Stat 08/09/2025 11:13 PM CDT TELEMETRY REPORT 06/20/2025 11:0 5 AM CDT PATHOLOGY Pathology 06/15/2025 8:18 AM CDT Mass of mandible Tobacco use HI EXCISION MALIGNANT TUMOR MANDIBLE RADICAL 06/15/2025 7:20 AM CDT Mass of mandible Tobacco use XR CHEST PA AND LATERAL 2 VW Routine 06/11/2025 7:37 AM CDT Pre-op testing CBC WITH DIFFERENTIAL Routine 05/28/2025 7:40 AM CDT Pre-op testing BASIC METABOLIC PANEL Routine 05/28/2025 7:40 AM CDT Pre-op testing REFERENCE LAB PROCESSING FEE Routine 05/28/2025 7:40 AM CDT Chronic kidney disease (CKD), stage III (moderate) REFERENCE LAB PROCESSING FEE Routine 05/28/2025 7:40 AM CDT Preop examination from Last 3 Months Results * XR CHEST PA OR AP [...] IMPRESSION: No evidence of acute cardiopulmonary disease. us Royal Zamora MD DIAGNOSTIC IMAGING OR DERABLES Final Result * (ABNORMAL) TROPONIN BASELINE, 5TH GEN (08/09/2025 11:13 PM CDT) Pathologist [facility] TROPONIN T, BASELINE 5TH GEN 38(H) <=15 ng/L 08/09/2025 11:50 PM CDT [facility] Blood BLOOD SPECIMEN / Unknown Venipuncture / Unknown 08/09/2025 11:13 PM CDT 08/09/2025 11:28 PM CDT Narrative [facility] - 08/09/2025 11:50 PM CDT Troponin elevated. us Royal Zamora MD CHEMISTRY ORDERABLES Final Result [facility] CLIA # [id number] [address] [place] [address] * (ABNORMAL) CBC WITH DIFFERENTIAL (08/09/2025 11:13 PM CDT) Only the most recent of2 resultswithin the time period is included. Pathologist [facility] WBC 10.2(H) 4.2 - 9.1 K/uL 08/09/2025 11:34 PM CDT [facility] RBC 4.83 4.63 - 6.08 M/uL 08/09/2025 11:34 PM [facility] HEMOGLOBIN 15.2 13.7 - 17.5 g/dL 08/09/2025 11:34 PM [facility] HEMATOCRIT 42.7 40.1 - 51.0 % 08/09/2025 11:34 PM [facility] MCV 88.4 79.0 - 92.2 fL 08/09/2025 11:34 PM T [facility] MCH 31.5 25.7 - 32.2 pg 08/09/2025 11:34 PM [facility] MCHC 35.6 32.3 - 36.5 g/dL 08/09/2025 11:34 PM [facility] RDW 12.6 11.0 - 14.5 % 08/09/2025 11:34 PM [facility] RDW-STDEV 40.8 36.9 - 56.9 fL 08/09/2025 11:34 PM [facility] PLATELETS 279 130 - 400 K/uL 08/09/2025 11:34 PM [facility] MPV 9.8(L) 10.0 - 14.8 fL 08/09/2025 11:34 PM [facility] NEUTROPHILS 70(H) 34 - 68 % 08/09/2025 11:34 PM [facility] LYMPHOCYTES 15(L) 22 - 53 % 08/09/2025 11:34 PM [facility] MONOCYTES 10 5 - 12 % 08/09/2025 11:34 PM [facility] EOSINOPHILS 3 1 - 7 % 08/09/2025 11:34 PM [facility] BASOPHILS 1 0 - 1 % 08/09/2025 11:34 PM [facility] IMMATURE GRANULOCYTES 1 % 08/09/2025 11:34 PM [facility] NEUTROPHIL ABSOLUTE 7.08(H) 1.78 - 5.38 K/uL 08/09/2025 11:34 PM [facility] LYMPHOCYTE ABSOLUTE 1.55 1.20 - 3.40 K/uL 08/09/2025 11:34 PM [facility] MONOCYTE ABSOLUTE 1.04(H) 0.30 - 0.82 K/uL 08/09/2025 11:34 PM [facility] EOSINOPHIL ABSOLUTE 0.34 0.04 - 0.54 K/uL 08/09/2025 11:34 PM [facility] BASOPHILS ABSOLUTE 0.07 0.01 - 0.08 K/uL 08/09/2025 11:34 PM [facility] IMMATURE GRANULOCYTES ABSOLUTE 0.08 K/uL 08/09/2025 11:34 PM CDT [facility] Blood BLOOD SPECIMEN / Unknown Venipuncture / Unknown 08/09/2025 11:13 PM CDT 08/09/2025 11:28 PM CDT Royal Zamora MD HEMATOLOGY ORDERABLES Final Result Performing Organization Address City/[facility]/ZIP Co de Phone Number [facility] CLIA # [id number] [address] [place] [address] * (ABNORMAL) BRAIN NATRIURETIC PEPTIDE, BNP OR PROBNP (08/09/2025 11:13 PM CDT) PROBNP, N TERMINAL 580(H) 0 - 125 pg/mL 08/09/2025 11:50 PM CDT [facility] Comment: INTERPRETIVE COMMENT based on diagnosis: Diagnostic [...] Royal Zamora MD CHEMISTRY ORDERABLES Final Result [facility] CLIA # [id number] [address] [place] [address] * (ABNORMAL) COMPREHENSIVE METABOLIC PANEL (08/09/2025 11:13 PM CDT) SODIUM 134(L) 136 - 145 mmol/L 08/09/2025 11:52 PM [facility] POTASSIUM 3.4(L) 3.5 - 5.1 mmol/L 08/09/2025 11:52 PM [facility] CHLORIDE 98 98 - 107 mmol/L 08/09/2025 11:52 PM [facility] CO2 19(L) 22 - 29 mmol/L 08/09/2025 11:52 PM [facility] CALCIUM 7.1(L) 8.8 - 10.2 mg/dL 08/09/2025 11:52 PM [facility] BUN 17 8 - 23 mg/dL 08/09/2025 11:52 PM [facility] CREATININE 0.98 0.67 - 1.17 mg/dL 08/09/2025 11:52 PM [facility] GLUCOSE 405(HH) 74 - 99 mg/dL 08/09/2025 11:52 PM [facility] TOTAL PROTEIN 7.0 6.6 - 8.7 g/dL 08/09/2025 11:52 PM [facility] ALBUMIN 3.8 3.5 - 5.2 g/dL 08/09/2025 11:52 PM [facility] BILIRUBIN TOTAL 0.2 0.0 - 1.2 mg/dL 08/09/2025 11:52 PM [facility] ALKALINE PHOSPHATASE 121 40 - 129 U/L 08/09/2025 11:52 PM [facility] AST 17 0 - 50 U/L 08/09/2025 11:52 PM [facility] ALT 14 0 - 50 U/L 08/09/2025 11:52 PM [facility] GFR >60 >=60 mL/min/1.7 3 sq meter 08/09/2025 11:52 PM [facility] Comment:eGFR calculated with 2020 CKD-EPI equation. Vegetarian diet, extremely high or low muscle mass, and may affect results. Cystatin C with Glomerular Filtration Rate is a suitable alternative for these patients. ANION GAP 17 5 - 20 mmol/L 08/09/2025 11:52 PM CDT [facility] Blood BLOOD SPECIMEN / Unknown Venipuncture / Unknown 08/09/2025 11:13 PM CDT 08/09/2025 11:28 PM CDT us Royal Zamora MD CHEMISTRY ORDERABLES Final Result [facility] CLIA # [id number] [address] [place] [id number] * TELEMETRY REPORT (06/20/2025 11:05 AM CDT) us Provider Scanning ECG ORDERABLES Final Result * PATHOLOGY (06/15/2025 8:18 AM CDT) CASE REPORT Surgical Pathology Report Case: [id number] Authorizing Provider: Julian Wang MD Collected: 06/15/2025 08:18 AM Ordering Location: [facility] Received: 06/15/2025 09:51 AM Operating Room Pathologist: Nilam Brewer MD Specimen: Mandible, left 2:05 PM CDT [facility] FINAL DIAGNOSIS A. Left mandible, mandibulectomy - Squamous mucosa with verrucous hyperplasia and marked acute and chronic inflammation, fistula tract present extending into bone, see comment - No evidence of malignancy REV:CLB Nilam Brewer MD [id number] 2:05 PM CDT [facility] at 1405 CDT DIAGNOSIS COMMENT The entire lesion was submitted for histologic evaluation and shows a squamous lined fistula tract with surrounding marked acute and chronic inflammation. The fistula tract involves the underlying bone. There is no evidence of invasive carcinoma. The fistula tract involves the anterior mucosa/bone margin. Chart review shows that the patient developed a lesion following tooth extractions. Recommend clinical correlation. 2:05 PM CDT [facility] GROSS DESCRIPTION A. Received in a container of formalin labeled Tune -left mandibulectomy is a 3.5 x 2.7 x 1.8 cm left edentulous segmental mandibulectomy. A suture cabello anterior. The margins are inked as follows: Anterior mucosa and bone-yellow, medial mucosa and bone-red, posterior mucosa and bone-black, lateral mucosa and soft tissue-orange, inferior soft tissue and bone-green. There is a 2.4 x 0.7 cm white-temple, plaque-like lesion on the mucosal surface, 0.1 cm from the posterior margin, 0.1 cm from the anterior margin, 0.1 cm from the medial margin, 1.5 cm from the lateral mucosal margin, 1.0 cm from the anterior bone margin, 0.7 cm from the medial bone margin, 0.3 cm from the posterior bone margin, and 2.0 cm from the inferior bone and soft tissue margin. The lesion is sectioned to reveal a greatest thickness of 0.1 cm with no obvious invasive features grossly identified. The soft tissue underlying the lesion is temple-pink and extensively softened temple necrotic. The mass does not grossly involve the underlying bone. Mailing Machine Assistant sections are submitted as follows: A1: Anterior mucosa, perpendicular A2: Posterior mucosa, perpendicular: A3-A4: Cross-sections of lesion with medial, lateral mucosal margins A5-A6: Remainder of lesion with underlying bone, including medial, lateral and inferior margins, decal A7: Posterior bone margin, en face, decal A8: Anterior bone margin, en face, decal Grossed by: Enedina Kennedy MS, PA ([facility])CM 5 2:05 PM [facility] OPERATIVE PROCEDURE 1: MANDIBULECTOMY 5 2:05 PM [facility] CLINICAL INFORMATION Mass of mandible [R22.0] Tobacco use [Z72.0] 5 2:05 PM [facility] COMMENT The HandMinder voice-activated dictation system may have been used in the creation of this report. Inherent to this system is the possibility of errors in syntax, grammar, punctuation, or other areas that could impact interpretation. If there are interpretive questions about the report, please contact the performing pathologist. Unless gross only is specified in the diagnosis, the microscopic examination substantiates the above cited diagnosis. The performance characteristics of all immunohistochemical stains cited in this report (if any) were determined by the Diagnostic Immunohistochemistry Laboratory of [facility] in compliance with CLIA'88 regulations. Some of these tests rely on the use of analyte specific reagents and are subject to specific labeling requirements by the FDA. All controls show appropriate reactivity. This testing was developed by the Diagnostic Immunohistochemistry Laboratory of [facility]. It has not been cleared or approved by the FDA. The FDA has determined that such clearance or approval is not necessary. 2:05 PM CDT [facility] Tissue Collection / Unknown 06/15/2025 8:18 AM CDT 06/15/2025 9:51 AM CDT us Julian Wang MD PATHOLOGY/CYTOLOGY ORDERABLES F inal Result [facility] CLIA # [id number] [address] [place] [id number] * XR CHEST PA AND LATERAL 2 VW (06/11/2025 7:37 AM CDT) Anatomical Region Laterality Modality Chest Computed Radiogr aphy 06/11/2025 7:37 AM CDT Impressions 06/11/2025 8:00 AM CDT IMPRESSION: No evidence of acute cardiopulmonary disease. Narrative 06/11/2025 8:00 AM CDT EXAM: XR CHEST PA AND LATERAL 2 VW DATE/TIME OF EXAM: 06/11/2025 7:37 AM REASON FOR EXAM: See Diagnosis DIAGNOSIS: Pre-op testing COMPARISON: None. FINDINGS: - Lines/tubes: None. - Cardiomediastinal: Contours are within normal limits. - Lungs/pleura: Radiographically the lungs appear grossly clear. There are likely innumerable tiny calcified pulmonary granuloma scattered throughout both lungs related to remote granulomatous disease. Hemidiaphragms are well visualized; no appreciable pleural effusion or pneumothorax. - Bones and soft tissues: No acute abnormalities. - Additional comments: None. Procedure Note Toan Mcginnis MD - 06/11/2025 EXAM: XR CHEST PA AND LATERAL 2 VW DATE/TIME OF EXAM: 06/11/2025 7:37 AM REASON FOR EXAM: See Diagnosis DIAGNOSIS: Pre-op testing COMPARISON: None. FINDINGS: - Lines/tubes: None. - Cardiomediastinal: Contours are within normal limits. - Lungs/pleura: Radiographically the lungs appear grossly clear. There are likely innumerable tiny calcified pulmonary granuloma scattered throughout both lungs related to remote granulomatous disease. Hemidiaphragms are well visualized; no appreciable pleural effusion or pneumothorax. - Bones and soft tissues: No acute abnormalities. - Additional comments: None. IMPRESSION: No evidence of acute cardiopulmonary disease. Julian Wang MD DIAGNOSTIC IMAGING ORDERABLES F inal Result * REFERENCE LAB PROCESSING FEE (05/28/2025 7:40 AM CDT) Only the most recent of2 resultswithin the time period is included. [facility] REFERENCE LAB SENDOUT Sent to Ref Lab 05/28/2025 11:01 AM CDT [facility] Other, specify BLOOD SPECIMEN / Unknown Collection / Unknown 05/28/2025 7:40 AM CDT 05/28/2025 9:49 AM CDT Sudeep Ruiz MD CHEMISTRY ORDERABLES Final Res ult [facility] CLIA # [id number] [address] [place] [address] * (ABNORMAL) BASIC METABOLIC PANEL (05/28/2025 7:40 AM CDT) Pathologist [facility] GLUCOSE 383(H) 65 - 99 mg/dL [facility] Comment: Verified by repeat analysis. Fasting reference interval For someone without known diabetes, a glucose value >125 mg/dL indicates that they may have diabetes and this should be confirmed with a follow-up test. BUN 11 7 - 25 mg/dL [facility] CREATININE 1.11 0.70 - 1.35 mg/dL [facility] GFR 75 > OR = 60 mL/min/1.7 3m2 [facility] BUN/CREAT RATIO SEE NOTE: - (calc) [facility] Comment: Not Reported: BUN and Creatinine are within reference range. SODIUM 133(L) 135 - 146 mmol/L [facility] POTASSIUM 3.8 3.5 - 5.3 mmol/L [facility] CHLORIDE 98 98 - 110 mmol/L [facility] CO2 20 20 - 32 mmol/L [facility] CALCIUM 7.4(L) 8.6 - 10.3 mg/dL [facility] Comment: Test Performed at: [facility] [address] [facility] [place] [address] Cullen Diaz MD Blood 05/28/2025 7:40 AM CDT 05/29/2025 6:54 AM CDT us Julian Wang MD CHEMISTRY ORDERABLES Final Resu lt [facility] [phone] [facility] [address] [facility] [place] [address] from Last 3 Months Insurance Care Teams Top Lift Compressor Relationship Specialty Start Date End Date Non-Staff, Physician NO ADDRESS ON FILE PCP - General 01/16/20
--- OUTSIDE RECORDS SUMMARY | 2025-08-10 00:39 | XMS_ITS | Encounter Summary ---
Author Organization [facility] Address [address] [place] [address] Care Team Providers Care Front Office Developer Name Role Phone Non-Staff, Physician Primary Care Provider Unava ilable Encounter Details Date Type Department Care Team (Latest Contact Info) Description 03/13/1999 Outpatient Historical [facility] [place] [address] [facility] [address] [place] [phone] Andrea Contreras, DO [address] [place] [phone] Need for prophylactic vaccination with tetanus-diphtheria (Td) (Primary Dx) Social History Tobacco Use Types Packs/Day Years Used Date Smoking Tobacco: Never Assessed Sex and Gender Information Value Date Recorded Sex Assigned at Not on file 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
--- OUTSIDE RECORDS SUMMARY | 2025-08-10 00:39 | XMS_ITS | Encounter Summary ---
Author Organization [facility] Address [address] [place] [address] Care Team Providers Care Supervisor Remelt Name Role Phone Non-Staff, Physician Primary Care Provider Unava ilable Encounter Details Date Type Department Care Team (Latest Contact Info) Description 01/19/2006 Outpatient Historical [facility] Medicine [address] [place] [address] Nilson Keller DO NO ADDRESS ON FILE Unspecified Essential Hypertension (Primary Dx) Social History Tobacco Use Types Packs/Day Years Used Date Smoking Tobacco: Never Assessed Sex and Gender Information Value Date Recorded Sex Assigned at Not on file 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
--- OUTSIDE RECORDS SUMMARY | 2025-08-10 00:39 | XMS_ITS | Encounter Summary ---
Author Organization [facility] Address [address] [place] [address] Care Team Providers Care Solderer Dipper Name Role Phone Non-Staff, Physician Primary Care Provider Unava ilable Encounter Details Date Type Department Care Team (Latest Contact Info) Description 12/30/2005 Outpatient Historical [facility] [address] [place] [address] Kanchan Mays, MINE TECHNICIAN [address] [place] [address] HYPERTENSION NOS (Primary Dx); DERMATOPHYTOSIS OF FOOT Social History Tobacco Use Types Packs/Day Years Used Date Smoking Tobacco: Never Assessed Sex and Gender Information Value Date Recorded Sex Assigned at Not on file 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
--- OUTSIDE RECORDS SUMMARY | 2025-08-10 00:39 | XMS_ITS | Clinical Summary ---
Author Organization [facility] Address [address] [place] [address] Care Team Providers Care Travel Registered Nurse Nicu Name Role Phone Non-Staff, Physician Primary Care Provider Unava ilable Allergies No known active allergies Medications aspirin (JAYLAN) 81 mg Oral Tab Take by mouth daily. Active losartan (COZAAR) 100 mg tablet Take 100 mg by mouth 2 times daily . Active amLODIPine (NORVASC) 10 mg tablet Take 10 mg by mouth daily. Active clobetasol (TEMOVATE) 0.05 % OintmentIndicatio ns:Rash and nonspecific skin eruption Apply to affected area 2 times daily. 45 Gram 2 6 Active mupirocin (BACTROBAN) 2 % OintmentIndicatio ns:Bilateral cellulitis of lower leg Apply to affected area 2 times daily. 60 Gram 2 8 Active hydrOXYzine HCl (ATARAX) 25 mg tabletIndications :Impetigo TAKE 1 TABLET BY MOUTH THREE TIMES DAILY NEEDED FOR ITCHING 30 Tablet 8 Active pramipexole (MIRAPEX) 1 mg TabletIndications :Restless legs,Pain in both lower extremities TAKE 1 TABLET BY MOUTH THREE TIMES DAILY 90 Tablet 8 Active sucroferric oxyhydroxide (VELPHORO) 500 mg Tablet, Chewable Take 500 mg by mouth 3 times daily. Active diphenhydrAMINE (BENADRYL) 25 mg tablet Take 25 mg by mouth every 6 hours as needed for Allergies. Active atenolol (TENORMIN) 50 mg tablet Take 50 mg by mouth daily. Active torsemide (DEMADEX) 100 mg tablet Take 100 mg by mouth 2 times daily. Active Active Problems Problem Noted Date Diagnosed Date Tobacco use 04/15/2016 Restless legs 06/28/2015 HTN (hypertension), benign 09/10/2008 Gouty arthropathy 09/07/2008 Overview (12/10/2010): Updating IMO/ICD9 Code and Description Chronic kidney disease (CKD), stage III (moderat e) 09/07/2008 Immunizations Immunization Administration Dates Next Due (TDVAX)(7 [...] Current Chew Last attempted to quit: 08/10/2016 Tobacco Cessation:Ready to Q uit: No; Counseling Given: Yes Comments:one can per 3 days x 40 years Alcohol Use Standard Drinks/Week Comments No 0 (1 standard drink = 0.6 oz pur e alcohol) Sex and Gender Information Value Date Recorded Sex Assigned at Not on file Legal Sex Male 5:05 AM MANPOWER DEVELOPMENT ADVISOR Gender Identity Not on file Sexual Orientation Not on file Occupation Industry Job Start Date Job End Date Not on file Not on file Not on file Not on file Last Filed Vital Signs Vital Sign Reading Time Taken Comments Blood Pressure 158/90 01/18/2019 3:47 AM MANPOWER DEVELOPMENT ADVISOR Pulse 59 11/20/2018 5:29 PM MANPOWER DEVELOPMENT ADVISOR Temperature 36.9 C (98.5 F) 01/18/2019 3:47 AM MANPOWER DEVELOPMENT ADVISOR Respiratory Rate 20 01/18/2019 3:47 AM MANPOWER DEVELOPMENT ADVISOR Oxygen Saturation 96% 01/18/2019 3:47 AM MANPOWER DEVELOPMENT ADVISOR Inhaled Oxygen Concentration - - Weight 144 kg (317 lb 6.4 oz) 01/18/2019 2:31 AM MANPOWER DEVELOPMENT ADVISOR Height 188 cm (6' 2 ) 01/18/2019 2:31 AM MANPOWER DEVELOPMENT ADVISOR Body Mass Index 40.75 01/18/2019 2:31 AM MANPOWER DEVELOPMENT ADVISOR Plan of Treatment Health Maintenance Due Date Last Done Comments ZOSTER VACCINE (1 of 2) 1981 DTAP/TDAP/TD VACCINES (1 - Tdap) 03/14/1999 03/13/19 99 FIT-DNA Q 3 years 2007 FIT/FOBT Q 1 year 2007 Flex Sig/CT Colonography Q 5 years 2007 COLORECTAL SCREENING 07/09/2020 07/09/2015, 07/09/20 15 Colorectal Cancer Screening 07/09/2020 RSV VACCINE (60+ or ) (1 - Risk 60-74 years 1-dose series) 2022 INFLUENZA VACCINE (#1) 2025 Insurance MEDICARE PART A AND B [facility] [place] [employer] Advance Directives For more information, please contact: [phone] * Full Code (Latest Code Status on File) Date Activated Date Inactivated Comments 07/09/2015 10:55 AM 07/09/2015 2:19 PM Care Teams Travel Registered Nurse Nicu Relationship Specialty Start Date End Date Non-Staff, Physician NO ADDRESS ON FILE PCP - General 01/16/20
--- OUTSIDE RECORDS SUMMARY | 2025-08-10 00:39 | XMS_ITS | Encounter Summary ---
Author Organization [facility] Address [address] [place] [address] Care Team Providers Care Leather Scrubber Name Role Phone Non-Staff, Physician Primary Care Provider Unava ilable Encounter Details Date Type Department Care Team ([facility] st Contact Info) Description 07/05/2019 Ancillary Orders [facility] Centralized Scheduling [address] [facility] [address] [place] [address] Mtnv, External Provider [address] [facility] [address] [place] [address] Social History Tobacco Use Types Packs/Day Years [...] on file Legal Sex Male 5:05 AM DICE TABLE PERSON Gender Identity Not on file Sexual Orientation Not on file Occupation Industry Job Start Date Job End Date Not on file Not on file Not on file Not on file documented as of this encounter Plan of Treatment Not on file documented as of this encounter Visit Diagnoses Not on filedocumented in this encounter Care Teams Leather Scrubber Relationship Specialty Start Date End Date Non-Staff, Physician NO ADDRESS ON FILE PCP - General 01/16/20 documented as of this encounter
--- OUTSIDE RECORDS SUMMARY | 2025-08-10 00:39 | XMS_ITS | Encounter Summary ---
Author Organization [facility] Address [address] [place] [address] Care Team Providers Care Aircraft General Repair Mechanic Name Role Phone Non-Staff, Physician Primary Care Provider Unava ilable Encounter Details Date Type Department Care Team (Latest Contact Info) Description 05/19/2000 Outpatient Historical [facility] Medicine [address] [place] [address] Nilson Keller DO NO ADDRESS ON FILE Backache, unspecified (Primary Dx); Hematuria Social History Tobacco Use Types Packs/Day Years Used Date Smoking Tobacco: Never Assessed Sex and Gender Information Value Date Recorded Sex Assigned at Not on file Legal Sex Male 5:05 AM SIGN BUILDER Gender Identity Not on file Sexual Orientation Not on file documented as of this encounter Plan of Treatment Not on file documented as of this encounter Visit Diagnoses Diagnosis Backache, unspecified- Primary Hematuria documented in this encounter Care Teams Aircraft General Repair Mechanic Relationship Specialty Start Date End Date Non-Staff, Physician NO ADDRESS ON FILE PCP - General 01/16/20 documented as of this encounter
--- OUTSIDE RECORDS SUMMARY | 2025-08-10 00:39 | XMS_ITS | Encounter Summary ---
Author Organization [facility] Address [address] [place] [address] Care Team Providers Care Senior Engineering Specialist Name Role Phone Non-Staff, Physician Primary Care Provider Unava ilable Encounter Details Date Type Department Care Team (Latest Contact Info) Description 02/02/2006 Outpatient Historical [facility] [address] [place] [address] Nilson Keller DO NO ADDRESS ON FILE Unspecified Essential Hypertension (Primary Dx); Unspecified Chest Pain Social History Tobacco Use Types Packs/Day Years Used Date Smoking Tobacco: Never Assessed Sex and Gender Information Value Date Recorded Sex Assigned at Not on file Legal Sex Male 5:05 AM MANDREL PRESS HAND Gender Identity Not on file Sexual Orientation Not on file documented as of this encounter Plan of Treatment Not on file documented as of this encounter Visit Diagnoses Diagnosis Unspecified essential hypertension- Primary Chest pain, unspecified documented in this encounter Care Teams Senior Engineering Specialist Relationship Specialty Start Date End Date Non-Staff, Physician NO ADDRESS ON FILE PCP - General 01/16/20 documented as of this encounter
--- OUTSIDE RECORDS SUMMARY | 2025-08-10 00:39 | XMS_ITS | Clinical Summary ---
Author Organization [facility] Address [address] [facility] [address] [place] [address] Phone Care Team Providers Care Quality Systems Manager Name Role Phone Unavailable Primary Care Provider Unavailabl e Social History Tobacco Use Types Packs/Day Years Used Date Smoking Tobacco: Some Days Sex and Gender Information Value Date Recorded Sex Assigned at Not on file Legal Sex Male 11:41 AM EST Gender Identity Not on file Sexual Orientation Not on file Plan of Treatment Health Maintenance Due Date Last Done Comments Colorectal Cancer Screening: Annual FOBT 2011 Colorectal Cancer Screening: Colonoscopy 2011 Colorectal Cancer Screening: Sigmoidoscopy 2011 Pneumococcal Vaccine: 50+ Years (3 of 3 - PCV20 or PCV21) 01/06/2021 01/06/2016, 05/27/2015 Influenza Vaccine (#1) 2025 Hepatitis B Vaccine Aged Out 01/06/2016, 10/07/2015, 05/27/2015 No longer eligible based on patient's age to complete this topic Pneumococcal Vaccine: Peds ( 0 to 5 Years) and At-Risk Patients (6 to 49 Years) Discontinued 01/06/2016, 05/27/2015 [place] [id number] [facility] [place] [address]
--- OUTSIDE RECORDS SUMMARY | 2025-08-10 00:39 | XMS_ITS | Encounter Summary ---
Author Organization [facility] Address [address] [place] [address] Care Team Providers Care Business Systems Administrator Name Role Phone Non-Staff, Physician Primary Care Provider Unava ilable Encounter Details Date Type Department Care Team (Latest Contact Info) Description 03/12/1999 Outpatient Historical [facility] [place] [address] [facility] [address] [place] [address] Nighat Jacques NO ADDRESS ON FILE Contusion of lower leg (Primary Dx) Social History Tobacco Use Types Packs/Day Years Used Date Smoking Tobacco: Never Assessed Sex and Gender Information Value Date Recorded Sex Assigned at Not on file Legal Sex Male 5:05 AM LINEN CLERK Gender Identity Not on file Sexual Orientation Not on file documented as of this encounter Plan of Treatment Not on file documented as of this encounter Visit Diagnoses Diagnosis Contusion of lower leg- Primary documented in this encounter Care Teams Business Systems Administrator Relationship Specialty Start Date End Date Non-Staff, Physician NO ADDRESS ON FILE PCP - General 01/16/20 documented as of this encounter
--- OUTSIDE RECORDS SUMMARY | 2025-08-10 00:39 | XMS_ITS | Encounter Summary ---
Author Organization [facility] Address [address] [place] [address] Care Team Providers Care Crime Scene Evidence Technician Name Role Phone Non-Staff, Physician Primary Care Provider Unava ilable Encounter Details Date Type Department Care Team (Late st Contact Info) Description 09/28/2008 Outpatient Historical [facility] AlexYadiel MD NO ADDRESS ON FILE Proteinuria Social History Tobacco Use Types Packs/Day Years Used Date Smoking Tobacco: Never Assessed Smokeless Tobacco: Current Chew Sex and Gender Information Value Date Recorded Sex Assigned at Not on file Legal Sex Male 5:05 AM DISTRIBUTION LEAD Gender Identity Not on file Sexual Orientation Not on file documented as of this encounter Plan of Treatment Not on file documented as of this encounter Procedures Procedure Name Priority Date/Time Associated Diagnosis Comments PATHOLOGY Routine 10/01/2008 10:33 AM DISTRIBUTION LEAD US GUIDE NEEDLE PLACEMENT Routine 10/01/2008 9:53 AM DISTRIBUTION LEAD PT AND APTT Stat 10/01/2008 9:16 AM DISTRIBUTION LEAD PLATELET COUNT Stat 10/01/2008 9:16 AM DISTRIBUTION LEAD documented in this encounter Results * PATHOLOGY (10/01/2008 10:33 AM DISTRIBUTION LEAD) PATHOLOGY/FADUMO GARDINER REPORT [facility] Anatomic Pathology Dept [address] [facility] [address] Patient: JOHNNY KEITH Accn No: [id number] Collected: 10/01/2008 10:33:00 AM SURGICAL PATHOLOGY FINAL REPORT Diagnosis A. Kidney, right, biopsy - adequate glomeruli present - tissue sent to [facility] for further evaluation. Randal Choe M.D. (Electronically signed by) Verified: 10/02/08 [facility] Clinical Information Proteinuria, glomerulonephritis. Specimen Source RIGHT Amina Gross Description Part A. Received in normal saline labelled Tune are four cores of temple tissue. The first two cores measure 1.2 cm each in length and each less than 1 mm in diameter. The last two cores measure 1.1 cm and 0.5 cm in length and each less than 1 mm in diameter. They are examined microscopically unstained, intraoperatively by Dr. Choe. Sufficient glomeruli per protocol are identified. The two cores measuring 1.2 cm each are placed in formalin. The 1.1 cm and 0.5 cm long needle cores are placed in Thang's solution. These are submitted to [facility] in [place], [place], for extradepartmental consultation. Immediate read: Kidney, right, biopsy: Adequate glomeruli present. [facility] SURGICAL PATHOLOGY ADDENDUM REPORT Discussion This case was sent to [facility] for a Kidney Biopsy on 10/02/2008. Diagnosis Please see their report. Randal Choe M.D. (Electronically signed by) Verified: 10/05/08 [facility] INTERFACE SYSTEM 10/01/2008 10:3 3 AM DISTRIBUTION LEAD us Yadiel Johnson MD PATHOLOGY/CYTOLOGY ORDERABLE S Edited INTERFACE SYSTEM Refer to clinic/hospital department * US GUIDE NEEDLE PLACEMENT (10/01/2008 9:53 AM DISTRIBUTION LEAD) Anatomical Region Laterality Modality Other 10/01/2008 9:53 AM DISTRIBUTION LEAD Narrative 10/01/2008 12:49 PM DISTRIBUTION LEAD Ultrasound guided right renal biopsy for glomeruli 10/01/2008. History: The patient is a 47-year-old white male with chronic kidney disease and proteinuria. Comparisons: None. The procedure and its risks, benefits and alternatives were explained to the patient. Consent to proceed was obtained. Monitored IV conscious sedation was provided with Versed and fentanyl. The patient was placed in the prone position. Preliminary imaging of both kidneys was performed. There is diffuse thinning of the cortex of both kidneys. The right kidney was selected for biopsy. The right flank was marked. The skin was prepped and draped in the usual fashion. Local anesthesia was achieved with lidocaine. Utilizing ultrasound guidance and the needle guide, 4 passes were made into the lower pole cortex of the right kidney with an 18-gauge biopsy gun. Four cores were obtained. The cores were sent to pathology for review and were judged to be adequate. The patient tolerated the procedure well and there were no immediate post procedure complications. Impression: Successful ultrasound guided right renal biopsy for glomeruli as described. There is diffuse thinning of the cortex of both kidneys. - Dictated By: Khalida Dee M.D. Electronically Signed By: Khalida Dee M.D. Date Signed: 10/01/08 [facility] Procedure Note Khalida Dee MD - 10/01/2008 Ultrasound guided right renal biopsy for glomeruli 10/01/2008. History: The patient is a 47-year-old white male with chronic kidneydisease and proteinuria. Comparisons: None. The procedure and its risks, benefits and alternatives were explained tothe patient. Consent to proceed was obtained. Monitored IV conscious sedation was provided with Versed and fentanyl. The patient was placed in the prone position. Preliminary imaging of bothkidneys was performed. There is diffuse thinning of the cortex of both kidneys. The right kidney wasselected for biopsy. The right flank was marked. The skin was prepped and draped in the usual fashion.Local anesthesia was achieved with lidocaine. Utilizing ultrasound guidance and the needle guide, 4passes were made into the lower pole cortex of the right kidney with an 18-gauge biopsy gun. Four coreswere obtained. The cores were sent to pathology for review and were judged to be adequate. The patienttolerated the procedure well and there were no immediate post procedure complications. Impression: Successful ultrasound guided right renal biopsy for glomerulias described. There is diffuse thinning of the cortex of both kidneys. - Dictated By: Khalida Dee M.D. Electronically Signed By: Khalida Dee M.D. Date Signed: 10/01/08 [facility] us Yadiel Johnson MD US ORDERABLES Final Result * PT AND APTT (10/01/2008 9:16 AM DISTRIBUTION LEAD) INR 1.0 [facility] Comment: Expected Values for INR: DVT/PE Goal INR 2.5; range 2.0 - 3.0 Valve Replacement Tissue Goal INR 2.5; range 2.0 - 3.0 Mechanical Goal INR 3.0; range 2.5 - 3.5 POST-OR Goal INR 2.5; range 2.0 - 3.0 or Goal 3.0; range 2.5 - 3.5 Atrial Fibrillation Goal INR 2.5; range 2.0 - 3.0 Ischemic Stroke Goal INR 2.5; range 2.0 - 3.0 For additional information see Guidelines for Anticoagulation available from the pharmacy [facility] [phone] PTT 26.7 22.5 - 36.5 Secs [facility] Comment: Therapeutic Range: Hi-level PE/DVT heparin protocol 80.1 -95.0 sec Lo-level PE/DVT heparin protocol 67.1 - 80.0 sec Cardiac Heparin Protocol 67.1 - 85.0 sec Neuro Heparin Protocol 67.1 - 80.0 sec As of 02/02/2008 note change in APTT Normal Range. PROTIME 13.9 12.8 - 15.8 Secs [facility] Comment:As of 2007 not e change in normal range. Blood specimen (specimen) 10/01/2008 9:16 AM DISTRIBUTION LEAD 10/01/2008 9:16 AM DISTRIBUTION LEAD us Yadiel Johnson MD HEMATOLOGY ORDERABLES Final Result INTERFACE SYSTEM Refer to clinic/hospital department [facility] CLIA# [id number] [address] [place] [id number] * PLATELET COUNT (10/01/2008 9:16 AM DISTRIBUTION LEAD) PLATELETS 298 140 - 440 K/ul [facility] Blood specimen (specimen) 10/01/2008 9:16 AM DISTRIBUTION LEAD 10/01/2008 9:16 AM DISTRIBUTION LEAD us Yadiel Johnson MD HEMATOLOGY ORDERABLES Final Result INTERFACE SYSTEM Refer to clinic/hospital department [facility] CLIA# [id number] [address] [place] [address] documented in this encounter Visit Diagnoses Diagnosis Proteinuria documented in this encounter Care Teams Crime Scene Evidence Technician Relationship Specialty Start Date End Date Non-Staff, Physician NO ADDRESS ON FILE PCP - General 01/16/20 documented as of this encounter
--- NOTE | 2025-08-10 00:41 | PM.HP ---
Providers/Chief Complaint Admitting Physician: Sylwia Bass MD Primary Care Provider: LETICIA Calvillo Chief Complaint: Stemi History of Present Illness Johnny Keith is a 64 year old male presented to the [facility] with chest pain constant for the last 1 hour. According to the patient he is having shortness of breath and chest pain for the last couple of days but off-and-on basis today when it become more consistent he decided to come to the ER. He admits to being diabetic and a smoker. Twelve-lead EKG was suggestive of inferior ST elevation with [address] depression. STEMI pager was alerted and patient was transferred to [facility]. He was loaded with 610 mg of Plavix and started on heparin. Patient noted to have nonsustained VT he was given 300 mg of IV amiodarone and route. Upon arrival his STs are resolved. He is chest pain-free. Since patient had ST elevation on the presentation I will proceed with urgent left heart cath/PCI. Medications/Allergies Home Medications ?Medication ?Instructions ?Recorded ?Confirmed ?Last Taken ?Type amitriptyline 10 mg tablet 40 mg PO DAILY 12/10/22 12/05/24 Unknown History amlodipine 10 mg tablet 10 mg PO DAILY 12/10/22 12/05/24 Unknown History aspirin 81 mg tablet,delayed 81 mg PO DAILY 12/10/22 12/05/24 Unknown History release calcium carbonate 600 mg PO BID 12/10/22 12/05/24 Unknown History carvedilol 6.25 mg tablet 6.25 mg PO BID 12/10/22 12/05/24 Unknown History cholecalciferol (vitamin D3) 10 10 mcg PO DAILY 12/10/22 12/05/24 Unknown History mcg (400 unit) capsule gabapentin 600 mg tablet 600 mg PO BID 12/10/22 12/05/24 Unknown History hydralazine 50 mg tablet 50 mg PO BID 12/10/22 12/05/24 Unknown History mycophenolate sodium 360 mg 720 mg PO DAILY 12/10/22 12/05/24 Unknown History tablet,delayed release tacrolimus 1 mg capsule, 2 mg PO Q12H 12/10/22 12/05/24 Unknown History immediate-release (Prograf) mupirocin 2 % topical ointment 1 applic topical BID #22 grams 12/16/22 12/05/24 Unknown Rx prednisone 5 mg tablet 5 mg PO DAILY 10/04/23 12/05/24 Unknown History azithromycin 250 mg tablet See Rx Instructions PO .COMPLEX #6 12/01/24 12/05/24 Unknown Rx (Zithromax Z-Isai) tabs Allergies Allergy/AdvReac Type Severity Reaction Status Date / Time No Known Allergies Allergy Verified 12/05/24 07:41 PFSH Acute PFSH: Medical History (Updated 08/10/25 @ 00:44 by Sylwia Bass MD) Kidney failure Neuropathy Surgical History Hx of parathyroidectomy Kidney transplant recipient History of surgery on lower extremity Hx of hand surgery Family History Father , @58 CAD (coronary artery disease) Diabetes Mother Dementia Brother Diabetes Denies family history of Hyperlipidemia Chronic kidney disease (CKD) Lung disease Cancer Hypertension Social History Smoking and tobacco/nicotine status: former use of tobacco/nicotine Alcohol intake: current Alcohol intake frequency: holidays/special occasions only Alcohol type: beer Substance/Drug Use: never Adopted: No Lives independently: Yes Household members: spouse Housing: House Marital status: Physical Exam Const: OTHER: GENERAL: Patient is alert, awake and oriented x3. HEART: Regular S1 and S2. No murmur, rub or gallop. LUNGS: Clear to auscultate bilaterally. CENTRAL NERVOUS SYSTEM: Grossly nonfocal. EXTREMITIES: Lower extremities with out edema bilaterally. A&P Assessment and plan 1. ST elevation (STEMI) myocardial infarction: 2. Essential hypertension: 3. Tobacco use disorder: Plan: Will proceed with emergent left heart cath/PCI if indicated. Patient EKG consistent with ST elevation. He has been already loaded with Plavix on heparin. Further plan will be advised as per progress the patient and after left heart cath. Patient has been explained all risk-benefit and alternative for the procedure he understand 2% risk of stroke major bleed arrhythmia and 5% risk of minor bleeding bruising infection hematoma contrast-induced nephropathy urgent emergent bypass or vascular surgery. PDMP PDMP Reviewed: Not Reviewed Attestations Medical Necessity Statement*: I am expecting patient's stay to cross more than 2 midnights. Coding Level of Care Code Acute Code for [facility] Fwd Diagnoses ST elevation (STEMI) myocardial infarction I21.3 Essential hypertension I10 Tobacco use disorder F17.200
--- NOTE | 2025-08-10 01:44 | PM.PROC ---
Procedure Note: Date of procedure: 08/10/25 Pre-procedure diagnosis: ST elevation WA Post-procedure diagnosis: same Procedure: Left heart cath was performed because of ST elevation WA Left main luminal irregularity without significant stenosis LAD has luminal irregularity without significant stenosis Left circumflex is large size and caliber vessel with proximal 90% stenosis RCA is a dominant large caliber vessel with 100% mid occlusion it is a culprit vessel PCI to mid RCA using 4.5 x18 millimeter drug-eluting stent postdilated with 5.0 noncompliant balloon at nominal atmospheres PCI to proximal left circumflex with 4.5x15 millimeter stent postdilated with 5.0 noncompliant balloon at 14 philip Excellent angiographic result ANDREW-3 flow was noted at the end of the case without any complication Plan: Patient was loaded with 600 mg of Plavix confirmed with Dr. Barker given at 2348 Continue aspirin, rosuvastatin since patient is allergic to atorvastatin and beta-michael over next 24 hours Echocardiogram in the morning Further plan will be devised as per progress of the patient Full note to be dictated Coding Level of Care Code Acute Code for [facility]
[2025-08-10 02:46] LABS: Troponin T (5th) Once 82 ng/L (0-15)
[2025-08-10 05:34] LABS: Hematocrit 41.9 % (37-53); Hemoglobin 14.20 g/dL (11.27-16.99); Mean Corpuscular HGB Conc 33.9 g/dL (30-55); Mean Corpuscular Hemoglobin 31.3 pg (27-33); Mean Corpuscular Volume 92.3 fl (82-101); Nucleated Red Blood Cells % 0 %; Platelet Count 275 10^3/cmm (157-399); Red Blood Count 4.54 10^6/uL (3.85-5.65); White Blood Count 11.52 10^3/uL (3.29-11.43)
[2025-08-10 05:50] LABS: Anion Gap 20.3 (5-19); Blood Urea Nitrogen 15 mg/dL (8-23); Calcium 6.9 mg/dL (8.5-10.5); Carbon Dioxide 22 mmol/L (22-29); Chloride 98 mmol/L (98-107); Creatinine Clr Calc Pharmacy 114.8762; Glucose 326 mg/dL (65-115); Osmolality Calculated 297 mOsm/kg (285-295); Potassium 3.3 mmol/L (3.5-5.1); Sodium 137 mmol/L (136-145)
--- NOTE | 2025-08-10 08:23 | PC.PHAR ---
Pts' presented a current medication list from [email or web address] with no last fill dates available.
--- NOTE | 2025-08-10 12:02 | PC.NURSE ---
Patient came from photonic laboratory technician with 2 right radial TR-bands. power and recovery shift engineer nurse took the top TR-band off prior to shift change. Day nurse continued to remove air slowly out of the TR-band that was over the site of insertion. The air is removed 2 ml's at a time. TR-Band is removed at 0930. A dressing of 2x2 and tegaderm is applied. No hematoma is noted. Patient tolerated well. Patient is reeducated not to use his right wrist/hand the 24 hours. Patient states understanding.
--- NOTE | 2025-08-10 13:06 | USCV_ITS ---
Johnny Keith Age: 64 Gender: M : 1960 Exam Date: 08/10/2025 13:29 Ordering Phys: Sylwia Bass MD ([email or web address]) Technologist: Exam Location: [facility] [place] Indication: cp sob BP: 115 / 80 HR: 56 Rhythm: Sinus Technical Quality: Adequate MEASUREMENTS (Male / Female) Normal Values 2D ECHO LV Diastolic Diameter PLAX 4.6 cm 4.2 - 5.9 / 3.9 - 5.3 cm IVS Diastolic Thickness 1.3 cm 0.6 - 1.0 / 0.6 - 0.9 cm IVS Systolic Thickness 1.6 cm LVPW Diastolic Thickness 1.3 cm 0.6 - 1.0 / 0.6 - 0.9 cm LVPW Systolic Thickness 1.7 cm LVOT Diameter 2.0 cm LV Ejection Fraction 2D Teich 55.3 % LV Ejection Fraction MOD 4C 57.3 % LV Ejection Fraction MOD 2C 59.4 % LV Ejection Fraction 2C AL 59.6 % LA Diameter 3.7 cm RA Systolic Volume 4C AL 76.5 ml RA Systolic Volume 4C MOD 72.7 ml LA Sys Volume AL 73.2 cm cubed LA Sys Volume Index AL 30.3 cm cubed/m squared Aorta at Sinotubular Diameter 3.3 cm IVC Diameter 1.2 cm M-MODE LA Ao Ratio MM 1.1 AV Cusp Separation MM 2.2 cm DOPPLER AV Peak Velocity 199.0 cm/s LVOT Peak Velocity 108.0 cm/s AV Area Cont Eq vti 1.8 cm squared AV Area Cont Eq pk 1.7 cm squared MV Area PHT 3.3 cm squared Mitral E to A Ratio 1.1 TV Peak Velocity 192.5 cm/s TR Peak Velocity 225.0 cm/s TR Peak Gradient 20.3 mmHg TV Peak E Velocity 97.0 cm/s PV Peak Velocity 95.0 cm/s FINDINGS Left Ventricle Normal left ventricular size, systolic function and wall thickness, with no regional wall motion abnormalities. Left ventricular ejection fraction is estimated at 60 %. Grade I/IV diastolic dysfunction (abnormal relaxation filling pattern), normal to mildly elevated filling pressures. Right Ventricle The right ventricle is normal in size and function. Right Atrium The right atrium is normal in size. Left Atrium The left atrium is normal in size. Mitral Valve Moderately thickened mitral valve. Mild mitral annular calcification. No mitral valve stenosis. Trace mitral valve regurgitation. Aortic Valve Moderate aortic valve calcification. No aortic valve stenosis. Trace aortic valve regurgitation. Tricuspid Valve Structurally normal tricuspid valve without significant stenosis or regurgitation. Pulmonary artery systolic pressure is normal. Pulmonic Valve Structurally normal pulmonic valve without significant stenosis. There is no pulmonic regurgitation. Pericardium Normal pericardium without effusion. Aorta Normal ascending aorta dimension. IVC The inferior vena cava appears normal. CONCLUSIONS Normal left ventricular size, systolic function and wall thickness, with no regional wall motion abnormalities. Left ventricular ejection fraction is estimated at 60 %. Grade I/IV diastolic dysfunction (abnormal relaxation filling pattern), normal to mildly elevated filling pressures. Moderate aortic valve calcification. No aortic valve stenosis. Trace aortic valve regurgitation. There is no pericardial effusion. Right atrial pressure is around 5 mm of mercury. Sylwia Bass MD (Electronically Signed) Final Date: 10 August 2025 19:25 S
--- NOTE | 2025-08-10 17:27 | PC.NURSE ---
Provider updated that he has not taken gabapentin for 2 months.
[2025-08-11 00:30] VITALS: BP 116/78; PULSE 49; RESP 18; TEMP 36.9; O2SAT 93
[2025-08-11 02:54] LABS: Hematocrit 41.7 % (37-53); Hemoglobin 14.10 g/dL (11.27-16.99); Mean Corpuscular HGB Conc 33.8 g/dL (30-55); Mean Corpuscular Hemoglobin 30.9 pg (27-33); Mean Corpuscular Volume 91.2 fl (82-101); Nucleated Red Blood Cells % 0 %; Platelet Count 251 10^3/cmm (157-399); Red Blood Count 4.57 10^6/uL (3.85-5.65); White Blood Count 9.50 10^3/uL (3.29-11.43)
[2025-08-11 03:16] LABS: Anion Gap 16.6 (5-19); Blood Urea Nitrogen 12 mg/dL (8-23); Calcium 7.0 mg/dL (8.5-10.5); Carbon Dioxide 25 mmol/L (22-29); Chloride 102 mmol/L (98-107); Creatinine Clr Calc Pharmacy 103.3886; Glucose 207 mg/dL (65-115); Osmolality Calculated 296 mOsm/kg (285-295); Potassium 3.6 mmol/L (3.5-5.1); Sodium 140 mmol/L (136-145)
[2025-08-11 04:38] VITALS: BP 116/78; PULSE 60; RESP 19; TEMP 36.6; O2SAT 97
[2025-08-11 07:37] VITALS: BP 112/86; PULSE 52; RESP 12; TEMP 36.9; O2SAT 96
--- NOTE | 2025-08-11 10:05 | PM.PN ---
Subjective Subjective: No overnight event. Patient is feeling much better and would like to go home Vitals/I&O/Wt Last Vital Signs Temp 98.5 F 08/11/25 07:37 Pulse 52 L 08/11/25 07:37 Resp 12 08/11/25 07:37 BP 112/86 08/11/25 07:37 Pulse Ox 96 08/11/25 07:37 O2 Del Method Room Air 08/11/25 07:37 08/10/25 08/11/25 08/11/25 22:59 06:59 14:59 Intake Total 480 / 480 Balance 480 / 480 Weight last 48 hrs Weight 242 lb 7 oz Weight 246 lb 9 oz Weight 246 lb 9 oz Physical Exam Const: OTHER: GENERAL: Patient is alert, awake and oriented x3. HEART: Regular S1 and S2. No murmur, rub or gallop. LUNGS: Clear to auscultate bilaterally. CENTRAL NERVOUS SYSTEM: Grossly nonfocal. EXTREMITIES: Lower extremities with out edema bilaterally. Data 08/11/25 02:37 08/11/25 02:37 A&P Assessment and plan 1. ST elevation (STEMI) myocardial infarction: 2. Essential hypertension: 3. Tobacco use disorder: 4. Status post renal autotransplantation: History of renal transplant followed up by [facility] on immunosuppressant Plan: Patient is doing fine from a cardiovascular perspective denies any complaint overall doing fine no overnight event. Creatinine remained stable. Patient has history of renal transplant at [facility]. He presented with ST elevation [place] yesterday night. He received 2 stents 1 in RCA and 1 in circumflex. Patient would like to go home. Plan: Will continue dual antiplatelet therapy in the form of clopidogrel and aspirin for at least 1 preferably 2-year as per DAPT trial. Continue rosuvastatin 20 mg patient is not sure whether he is allergic to statin or not advised in case of cramps pains he should stop the medicine and let us know. I will also recheck total CK liver function test in 3 to 4 days after starting the medicine. Continue home medicines in the form of immunosuppressant as prescribed by exceptional children's teacher. Continue amlodipine which patient is taking for long. Time. His ejection fractions remains normal 60%. Patient appeared to be bradycardic with heart rate into low 50s occasionally dropped down to 40s therefore I will reduce carvedilol dose from 6.25 to 3.125 mg twice daily. Patient has been advised to keep log of blood pressure and pulse twice a day if he noticed that his blood pressure is going up by 140/80 or above it most of the time at that point my choices are to start him on CLAIR or ARB. PDMP PDMP Reviewed: Not Reviewed Attestations Medical Necessity Statement*: Patient will be discharged today Coding Level of Care Code Acute Code for [facility] Fw Diagnoses ST elevation (STEMI) myocardial infarction I21.3 Essential hypertension I10 Tobacco use disorder F17.200 Status post renal autotransplantation Z94.0
--- NOTE | 2025-08-11 10:12 | PM.DCS ---
Discharge Providers Date of Admission: 08/10/25 01:58 Date of Discharge: August 11, 2025 Attending Provider at Admission: Sylwia Bass MD Attending Provider at Discharge: Sylwia Bass MD Consults: 64-year-old male past medical history significant for hypertension continues tobacco abuse s/p renal transplant in 2019 followed up by [facility] presented with ST elevation MA at [facility]. Patient was transferred to [facility] he was taken to the Human Resources Training Manager, he was noted to have 100% right coronary artery with ANDREW 0 flow. It was treated with single drug-eluting stent postdilated with noncompliant balloon. He was also noted to have 90% proximal circumflex lesion. It was treated and postdilated with noncompliant balloon as well. Patient has luminal irregularities and rest of arteries including LAD. Hospital course remained uncomplicated. He is bradycardic though therefore will reduce Coreg dose. On today's visit Patient is doing fine from a cardiovascular perspective denies any complaint overall doing fine no overnight event. Creatinine remained stable. Patient has history of renal transplant at [facility]. He presented with ST elevation MA yesterday night. He received 2 stents 1 in RCA and 1 in circumflex. Patient would like to go home. Plan: Will continue dual antiplatelet therapy in the form of clopidogrel and aspirin for at least 1 preferably 2-year as per DAPT trial. Continue rosuvastatin 20 mg patient is not sure whether he is allergic to statin or not advised in case of cramps pains he should stop the medicine and let us know. I will also recheck total CK liver function test in 3 to 4 days after starting the medicine. Continue home medicines in the form of immunosuppressant as prescribed by tube rebuilder. Continue amlodipine which patient is taking for long. Time. His ejection fractions remains normal 60%. Patient appeared to be bradycardic with heart rate into low 50s occasionally dropped down to 40s therefore I will reduce carvedilol dose from 6.25 to 3.125 mg twice daily. Patient has been advised to keep log of blood pressure and pulse twice a day if he noticed that his blood pressure is going up by 140/80 or above it most of the time at that point my choices are to start him on CLAIR or ARB. Primary Care Provider: LETICIA Calvillo Diagnoses at Discharge Discharge Diagnosis 1. ST elevation (STEMI) myocardial infarction: 2. Essential hypertension: 3. Tobacco use disorder: 4. Status post renal autotransplantation: Reason for Visit Reason for Visit: Stemi Physical Exam Const: OTHER: GENERAL: Patient is alert, awake and oriented x3. HEART: Regular S1 and S2. No murmur, rub or gallop. LUNGS: Clear to auscultate bilaterally. CENTRAL NERVOUS SYSTEM: Grossly nonfocal. EXTREMITIES: Lower extremities with out edema bilaterally. Discharge Data Studies Completed and Pending Completed Studies During Hospitalization Category Date Time Status CV. echo complete* [id number] Routine Ultrasound 08/10/25 13:06 Completed Pending at discharge Category Date Time Status RHIT request for service Stat Exams 08/10/25 00:16 Ordered Laboratory Results WBC 9.50 10^3/uL (3.29-11.43) 08/11/25 02:37 RBC 4.57 10^6/uL (3.85-5.65) 08/11/25 02:37 Hgb 14.10 g/dL (11.27-16.99) 08/11/25 02:37 Hct 41.7 % (37-53) 08/11/25 02:37 MCV 91.2 fl (82-101) 08/11/25 02:37 MCH 30.9 pg (27-33) 08/11/25 02:37 MCHC 33.8 g/dL (30-55) 08/11/25 02:37 RDW 12.7 % (12.1-15.1) 08/11/25 02:37 Plt Count 251 10^3/cmm (157-399) 08/11/25 02:37 MPV 9.5 fL (7.4-10.4) 08/11/25 02:37 Neut % (Auto) 70.2 % 08/11/25 02:37 Lymph % (Auto) 13.4 % 08/11/25 02:37 Appling % (Auto) 12.1 % 08/11/25 02:37 Eos % (Auto) 3.4 % 08/11/25 02:37 Baso % (Auto) 0.4 % 08/11/25 02:37 Neut # (Auto) 6.67 10^3/uL (1.8-7.7) 08/11/25 02:37 Lymph # (Auto) 1.3 10^3/uL (0.8-4.8) 08/11/25 02:37 Appling # (Auto) 1.2 10^3/uL (0.2-0.9) H 08/11/25 02:37 Eos # (Auto) 0.3 10^3/uL (0.0-0.8) 08/11/25 02:37 Baso # (Auto) 0.0 10^3/uL (0.0-0.1) 08/11/25 02:37 Nucleated RBC % (auto) 0 % 08/11/25 02:37 Nucleated RBCs # 0.0 /100WBC 08/11/25 02:37 Sodium 140 mmol/L (136-145) 08/11/25 02:37 Potassium 3.6 mmol/L (3.5-5.1) 08/11/25 02:37 Chloride 102 mmol/L (98-107) 08/11/25 02:37 Carbon Dioxide 25 mmol/L (22-29) 08/11/25 02:37 Anion Gap 16.6 (5-19) 08/11/25 02:37 BUN 12 mg/dL (8-23) 08/11/25 02:37 Creatinine 1.0 mg/dL (0.7-1.2) 08/11/25 02:37 GFR Calculation 75.7 mL/min (90-130) L 08/11/25 02:37 Glucose 207 mg/dL (65-115) H 08/11/25 02:37 POC Glucose 211 mg/dL (70-110) H 08/10/25 07:32 Calculated Osmolality 296 mOsm/kg (285-295) H 08/11/25 02:37 Calcium 7.0 mg/dL (8.5-10.5) L 08/11/25 02:37 Troponin T 5th Gen ng/L 82 ng/L (0-15) H 08/10/25 02:22 Vitals Last Vital Signs Temp 98.5 F 08/11/25 07:37 Pulse 52 L 08/11/25 07:37 Resp 12 08/11/25 07:37 BP 112/86 08/11/25 07:37 Pulse Ox 96 08/11/25 07:37 O2 Del Method Room Air 08/11/25 07:37 Discharge Plan Discharge Patient Disposition: Home Condition: Stable Prescriptions: New clopidogrel 75 mg tablet 75 mg PO DAILY Qty: 90 4RF aspirin [Adult Aspirin Regimen] 81 mg tablet,delayed release (DR/EC) 81 mg PO DAILY Qty: 90 4RF rosuvastatin 20 mg tablet 20 mg PO DAILY Qty: 30 4RF Continued aspirin 81 mg tablet,delayed release (DR/EC) 81 mg PO DAILY amlodipine 10 mg tablet 10 mg PO DAILY carvedilol 6.25 mg tablet 6.25 mg PO BID Rx Instructions: must administer with a meal/food mycophenolate sodium 360 mg tablet,delayed release (DR/EC) 360 mg PO DAILY tacrolimus [Prograf] 1 mg capsule 2 mg PO BID prednisone 5 mg tablet 5 mg PO DAILY calcium carbonate-vitamin D3 [Calcium + D] 600 mg-5 mcg (200 unit) Tablet 1 tab PO DAILY acetaminophen 500 mg Tablet 1,000 mg PO Q6H PRN (Reason: Pain) cholecalciferol (vitamin D3) [Vitamin D3] 50 mcg (2,000 unit) Tablet 50 mcg PO DAILY Referrals: Kanchan Mays FNP [Primary Care Provider, Family Practice] - 08/17/25 9:00 am George Tejeda MD [Physician, Cardiology] - 09/03/25 3:45 pm Patient Instructions: Coronary Angioplasty (DC), Opioid Safety, Patient Portal & Carlos Instructions Activity Restrictions/Additional Instructions: Patient can go back to work without restriction after 1 week. Patient will check total CK BMP in 4 days since I am starting him on statin. Patient will follow-up with cardiology in 7 to 10 days in cardiology clinic. Discharge Attestations Time Spent in Discharge Care*: greater than 30 min Quality Metrics Clinical Quality Measures [ Acute Myocardial Infaction { Clinical Trial Participant: No; Contraindication to aspirin: None; Aspirin prescribed; Contraindication to statin: None; Statin prescribed; Contraindication to PCI: None; PCI performed;}] Coding Level of Care Code Acute Code for [facility] Fwd Diagnoses ST elevation (STEMI) myocardial infarction I21.3 Essential hypertension I10 Tobacco use disorder F17.200 Status post renal autotransplantation Z94.0
[2025-08-11 10:39] VITALS: BP 111/78; PULSE 52; RESP 13; O2SAT 96
== END 2025-08-11 11:03 | disposition home or self-care (01) | DRG 322 ==
LOC: ER 00:36 → CCL 00:37 → CSU 01:58
PROVIDERS: Admitting Provider Internal Medicine Cardiovascular Disease; Emergency Provider Emergency Medicine; PCP Nurse Practitioner Family; Visit Provider Internal Medicine Cardiovascular Disease
PROC: 027135Z Dilation of Coronary Artery, Two Arteries with Two Drug-eluting Intraluminal Devices, Percutaneous Approach (ICD-10-PCS; principal; 2025-08-10 00:45)
PROC: 027135Z Dilation of Coronary Artery, Two Arteries with Two Drug-eluting Intraluminal Devices, Percutaneous Approach (ICD-10-PCS; 2025-08-10 00:45)
DX: I21.19 ST elevation (STEMI) myocardial infarction involving other coronary artery of inferior wall (principal); Z94.0 Kidney transplant status; E11.40 Type 2 diabetes mellitus with diabetic neuropathy, unspecified; Z79.899 Other long term (current) drug therapy; Z79.82 Long term (current) use of aspirin; Z79.52 Long term (current) use of systemic steroids; Z83.3 Family history of diabetes mellitus; Z82.49 Family history of ischemic heart disease and other diseases of the circulatory system; Z87.891 Personal history of nicotine dependence
CPT/HCPCS: 36415; 36416; 80048; 82962; 84484; 85025; 85347; 93306; 93454; 99152; 99153; 99285; C1725; C1769; C1874; C1887; C1894; C9606; J1644; J2250; J3010; J3490; J7030; J9999; Q9967

== ENCOUNTER → 2025-08-17 10:50 | Outpatient (BNVA) | payer BC, SELFPAY | PROVIDERS: PCP Nurse Practitioner Family; Visit Provider Nurse Practitioner Family | DX: E11.9 Type 2 diabetes mellitus without complications (principal) | CPT/HCPCS: 83036 ==